=== PATIENT | female | born 1960 | race Caucasian/White ===

== ENCOUNTER 2024-07-31 14:51 | Outpatient (REF) | payer MEDICARE, OTHER, SELFPAY ==
--- NOTE | 2024-07-31 14:58 | EMG_ITS ---
Chief complaint: History of lumbar fusion 2020, right-sided back/leg pain at that time. Bilateral hand and feet numbness started about a year ago. Fall 12/2023, paralyzed for about 15 minutes, told to have cervical spinal stenosis. Reason for referral: Evaluate for radiculopathy versus neuropathy Referred by: Dr. Hirsch Procedure done: Bilateral upper and lower extremity NCS/EMG Precautions and/or limitations: None The limb temperature was monitored continuously and remained between 32-36 degrees C during the performance of the NCS. Nerve Conduction Studies Anti Sensory Summary Table ?Stim Site NR Onset (ms) Norm Onset (ms) Peak (ms) Norm Peak (ms) O-P Amp (?V) Norm O-P Amp Site1 Site2 Delta-0 (ms) Dist (cm) Edson (m/s) Norm Edson (m/s) Left Median Anti Sensory (2nd Digit) Wrist ? 3.5 4.4 <3.6 8.2 >10 Wrist 2nd Digit 3.5 14.0 40 Right Median Anti Sensory (2nd Digit) Wrist ? 3.1 3.8 <3.6 26.5 >10 Wrist 2nd Digit 3.1 14.0 45 Left Sural Anti Sensory (Lat Mall) Calf NR <4.0 >5.0 Calf Lat Mall 14.0 Right Sural Anti Sensory (Lat Mall) Calf NR <4.0 >5.0 Calf Lat Mall 14.0 Left Ulnar Anti Sensory (5th Digit) Wrist ? 2.8 3.3 <3.7 15.0 >15.0 Wrist 5th Digit 2.8 14.0 50 Right Ulnar Anti Sensory (5th Digit) Wrist ? 2.4 3.1 <3.7 22.2 >15.0 Wrist 5th Digit 2.4 14.0 58 Motor Summary Table ?Stim Site NR Onset (ms) Norm Onset (ms) O-P Amp (mV) Norm O-P Amp iAmp (mV) Amp (1st) (%) Site1 Site2 Delta-0 (ms) Dist (cm) Edson (m/s) Norm Edson (m/s) Left Median Motor (Abd Poll Brev) Wrist ? 5.0 <3.9 6.8 >4.5 7.4 100.0 Elbow Wrist 4.1 18.0 44 >45 Elbow ? 9.1 6.7 7.5 98.5 Right Median Motor (Abd Poll Brev) Wrist ? 4.3 <3.9 10.0 >4.5 12.1 100.0 Elbow Wrist 3.9 19.5 50 >45 Elbow ? 8.2 9.5 11.6 95.0 Right Peroneal Motor (Ext Dig Brev) Ankle ? 8.1 <4.0 1.1 >2.5 1.3 100.0 Ankle Ext Dig Brev 8.1 0.0 B Fib ? 16.8 0.4 0.4 36.4 B Fib Ankle 8.7 29.0 33 >40 Poplt ? 17.2 1.4 1.6 127.3 Poplt B Fib 0.4 7.0 175 >40 Left Tibial Motor (Abd Le Brev) Ankle ? 5.6 <5 3.8 >2.5 4.8 100.0 Ankle Abd Le Brev 5.6 0.0 Knee ? 18.6 0.5 0.5 13.2 Knee Ankle 13.0 37.0 28 >40 Right Tibial Motor (Abd Le Brev) Ankle ? 8.0 <5 4.1 >2.5 5.2 100.0 Ankle Abd Le Brev 8.0 0.0 Knee ? 18.9 0.4 0.8 9.8 Knee Ankle 10.9 35.0 32 >40 Left Ulnar Motor (Abd Dig Minimi) Wrist ? 3.0 <3.0 6.8 >5 8.1 100.0 B Elbow Wrist 3.1 17.5 56 >45 B Elbow ? 6.1 6.5 7.9 95.6 A Elbow B Elbow 1.8 10.0 56 >45 A Elbow ? 7.9 5.4 6.9 79.4 Right Ulnar Motor (Abd Dig Minimi) Wrist ? 2.7 <3.0 9.4 >5 11.0 100.0 B Elbow Wrist 3.3 18.5 56 >45 B Elbow ? 6.0 8.9 10.5 94.7 A Elbow B Elbow 1.4 10.0 71 >45 A Elbow ? 7.4 8.4 10.0 89.4 EMG ?Side Muscle Nerve Root Ins Act Fibs Psw Amp Dur Poly Recrt Int Pat Comment Right 1stDorInt Ulnar C8-T1 Nml Nml Nml Nml Nml 0 Nml Complete Right FlexCarRad Median C6-7 Nml Nml Nml Nml Nml 0 Nml Complete Right Biceps Musculocut C5-6 Nml Nml Nml Nml Nml 0 Nml Complete Right Triceps Radial C6-7-8 Nml Nml Nml Nml Nml 0 Nml Complete Right Deltoid Axillary C5-6 Nml Nml Nml Nml Nml 0 Nml Complete Left 1stDorInt Ulnar C8-T1 Nml Nml Nml Nml Nml 0 Nml Complete Left FlexCarRad Median C6-7 Nml Nml Nml Nml Nml 0 Nml Complete Left Biceps Musculocut C5-6 Nml Nml Nml Nml Nml 0 Nml Complete Left Triceps Radial C6-7-8 Nml Nml Nml Nml Nml 0 Nml Complete Left Deltoid Axillary C5-6 Nml Nml Nml Nml Nml 0 Nml Complete Right AbdHallucis MedPlantar S1-2 Nml Nml Nml Nml Nml 0 Nml Complete Right AntTibialis Dp Br Peron L4-5 Nml Nml Nml Nml Nml 0 Nml Complete Right PostTibialis Tibial L5, S1 Nml Nml Nml Nml Nml 0 Nml Complete Right MedGastroc Tibial S1-2 Nml Nml Nml Nml Nml 0 Nml Complete Right VastusMed Femoral L2-4 Nml Nml Nml Nml Nml 0 Nml Complete Left AbdHallucis MedPlantar S1-2 Nml Nml Nml Nml Nml 0 Nml Complete Left AntTibialis Dp Br Peron L4-5 Nml Nml Nml Nml Nml 0 Nml Complete Left PostTibialis Tibial L5, S1 Nml Nml Nml Nml Nml 0 Nml Complete Left MedGastroc Tibial S1-2 Nml Nml Nml Nml Nml 0 Nml Complete Left VastusMed Femoral L2-4 Nml Nml Nml Nml Nml 0 Nml Complete Paraspinal EMG ?Side Muscle Nerve Root Ins Act Fibs Psw Comment Right Cervical Upper Rami Nml Nml Nml Right Cervical Mid Rami Nml Nml Nml Right Cervical Lower Rami Nml Nml Nml Left Cervical Upper Rami Nml Nml Nml Left Cervical Mid Rami Nml Nml Nml Left Cervical Lower Rami Nml Nml Nml FINDINGS: Right median motor nerve showed prolonged distal latency, normal amplitude and normal conduction velocity. Left median motor nerve showed prolonged distal latency, normal amplitude and slow conduction velocity. Bilateral median sensory nerves showed prolonged peak latencies. Right peroneal nerve showed prolonged distal latency, small amplitude and slow conduction velocity distally. Bilateral tibial nerves showed prolonged distal latency, small amplitude proximally and slow conduction velocity. Bilateral sural nerves showed absent response. All other nerves tested were within normal. Concentric needle EMG was performed in selected muscles of the bilateral upper and lower extremities, cervical paraspinals. Study did not reveal signs of electric abnormalities as shown in the table above. IMPRESSION: 1. This is an abnormal study. 2. 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 3. There is electrodiagnostic evidence for bilateral moderate-severe median neuropathy at the wrist, consistent with Carpal Tunnel Syndrome. 4. There is no electrodiagnostic evidence for ulnar neuropathy, brachial plexopathy, cervical radiculopathy, lumbosacral plexopathy, or lumbar radiculopathy. Thank you for your kind referral. Valarie Szymanski MD, MURALI Board Certified, [place] [employer] (ABPMR) Board Certified, [place] [employer] (ABEM) CODIN 08694 x4 MTDD
--- OUTSIDE RECORDS SUMMARY | 2024-07-31 18:38 | XMS_ITS | Data Portability ---
Author Organization [facility], Main Office Address [address] [place] [address] Care Team Providers Care Director Of Maintenance Name Role Phone [facility] Ophthalmologis t ANY FISHER Primary Care Provider [phone] GREGORIO CHING Neurosurgeon MARTY GARCIA Neurologist Assessment Encounter Date Assessment Date Assessment LastModified by Organization Details LastModified Time 11/14/2023 11/14/2023 1. Lab Tests: Added ferritin and iron levels to rule out deficiencies potentially causing restless legs. 2. Referrals: Placed a sleep medicine referral and encouraged her to follow through. 3. Weight Management: Advised her to continue working with her operations trainer and monitor weight progress. Follow-up in 1 months to assess weight loss and consider medication if needed. 3. Myeloma Workup: If positive, refer to a admission liaison-onc ologist. Consider a bone scan and EMG for the noted neuropathy, +/- neurology, may consider gabapentin sometime for symptomatic relief. 4. Diet: Discussed the Mediterranean diet briefly and its benefits. 5. Follow up with neurosurgery regarding cervical finding on MRI 6. No signs of infection with leukocytosis, could be reactive. I will follow up in approximately 1 months to evaluate her weight loss progress and discuss her decision regarding potential neurosurgery for her neck. I have spent 45 minutes on this encounter. The time documented represents time spent on the day of the encounter preparing for and completing the visit. Time spent performing a physical exam, obtaining history from the patient, counseling/educa ting the patient in possible diagnosis and treatment options. This time is independent of any additional procedures/diagn ostic testing/interpre tations. [email or web address] Not available 11/14/2023 19:10:38 11/23/2023 11/23/2023 The patient is an adult over 18 years old with a BMI greater than 30 kg/m??. She has a medical history that includes hypertension, prediabetes, hyperlipidemia, and a family history of heart disease. A sleep evaluation is pending for potential obstructive sleep apnea (DANDY). She will be engaging in a structured program of behavioral modification, adhering to a Mediterranean-st yle low-calorie diet, and regular exercise approximately 3-4 times a week for the next 3 months with her operations trainer. If there is no significant change in her weight, we discussed potential medication augmentation, as weight loss will be challenging for her given her severe degenerative spine disease worsened by her recent fall. With the need for recent PO steroid due to transient quadriplegia. She has also had lower back surgery in the past. She will conduct weekly weight checks. Both NAOMI and PHQ assessments have been completed. A follow-up appointment is scheduled for three months from now, and we will review the weight loss contract at that time. This service was provided using telemedicine. Patient consented to video & audio visit Patient was located in the [facility]. Provider was located in the office. No other persons participated in the telemedicine visit except for the patient unless otherwise indicated here. {{}} Total time of visit was 15 minutes. [email or web address] Not available 11/23/2023 18:03:08 02/27/2024 02/27/2024 The patient is an adult over 18 years old with a BMI greater than 30 kg/m??. She has a medical history that includes hypertension, prediabetes, hyperlipidemia, and a family history of heart disease. A sleep evaluation is pending for potential obstructive sleep apnea (DANDY). She also has significant spinal stenosis with radiculopathy, which limits her ability to get the most out of physical activity despite her efforts including surgery, and her weight exacerbates her symptoms to the point that she ambulates with a walker and experiences significant discomfort at night. Despite engaging in a structured program of behavioral modification, adhering to a Mediterranean-st yle low-calorie diet, and trying to exercise regularly with the guidance of her operations trainer, there has been no significant change in her weight. After discussing medication options, we decided to initiate treatment with Zepbound, pending approval from her insurance. She will continue with lifestyle modifications, including dietary restrictions, and will strive for regular exercise despite her back issues while on this medication. The initial dosage will follow recommended guidelines, with plans to adjust the dose monthly as needed. She has agreed not to use any other weight loss medications or those with similar mechanisms of action concurrently. We discussed potential side effects of Zepbound, such as nausea and constipation. The patient has no history of thyroid cancer, gallbladder disease, or pancreatitis. Instructions were provided on proper injection techniques, including alternating injection sites, cleaning the area before injecting, and pinching the skin during injection. She is required to report her progress every two weeks via messaging, which will help guide any necessary adjustments to her prescription. A one-time prior authorization for Zepbound will be pursued, and we will not switch to a different GLP-1 receptor agonist or engage in [id number] appeals if the medication is denied. She is responsible for locating a pharmacy that stocks the medication and understands the titration process, which involves increasing doses sequentially. If the required dose is unavailable, we will maintain the current dose or adjust to a lower dose until the desired dose becomes available. I also reviewed the risk of bowel obstruction with her. She will conduct weekly weight checks. Both NAOMI and PHQ assessments have been completed. A follow-up appointment is scheduled for three months from now, and the weight loss contract has been completed and signed. I, the prescribing provider, am a board-certified family medicine physician with training in obesity management. This certification is awarded by the [employer], a member of the [employer]. Additionally, I have completed continuing medical education (CME) in obesity management, awarded by the [employer], which has equipped me with comprehensive knowledge and skills in this specialty area. I have spent 45 minutes on this encounter. The time documented represents the time spent on the day of the encounter preparing for and completing the visit, including performing a physical exam, obtaining the patient's history, and counseling/educa ting the patient on possible diagnoses and treatment options. This time does not include any additional procedures, diagnostic testing, or interpretations. [email or web address] Not available 02/27/2024 19:02:15 04/09/2024 04/09/2024 Her blood pressure is better controlled today with amlodipine 10 mg, and she is tolerating it well. We will continue with this medication for now. I anticipate that as she continues to lose weight, her blood pressure may improve further. Regarding her lumbar stenosis, I am ordering an EMG of the lower extremities to assess for nerve involvement. Additionally, I will order an EMG for the upper extremities to evaluate her cervical radiculopathy symptoms. As for her Zepbound treatment, she has just started the 5 mg dose, which she is tolerating well. I will send a prescription for the 7.5 mg dose, with the plan to increase it once she has completed four doses of the 5 mg formulation, as per the titration protocol. On examination of her hip, she appears to have gluteal tendinopathy, which is likely unrelated to her lower extremity symptoms. I will order an X-ray of her hip and pelvis to rule out structural abnormalities. If the imaging is normal and her neurosurgeon approves, she can proceed with physical therapy focused on strengthening her gluteal muscles. Her operations trainer has also noted muscle spasms in this area, which I confirmed during the exam. To address this, I prescribed Robaxin for symptomatic relief, with instructions to use it as needed. The potential for sedation was discussed. I will follow up with her in three months to reassess her weight, blood pressure, and hip symptoms. [email or web address] Not available 04/09/2024 18:46:37 07/09/2024 07/09/2024 Weight Management & Zepbound Use: -Continue Zepbound, but if the dose lapse exceeds two weeks, restart at 2.5 mg to reduce the risk of bowel obstruction and GI side effects. -Encourage continued exercise with her operations trainer and dietary modifications. Neurologic Symptoms: -Follow up with neurosurgery regarding tingling in her fingertips for potential intervention. -EMG scheduled for next month to assess for neuropathy or cervical involvement. Hip Pain: -Symptoms have improved, and physical therapy was never pursued. Monitor and reassess if pain worsens. Blood Pressure & General Health: -BP is well controlled today? continue monitoring. -Continue dietary improvements and portion control. Follow-Up: Reassess in a PE to review medication adherence, weight loss progress, and EMG results. Monitor for any worsening neurologic symptoms or medication-relat ed side effects. belem Not available 07/09/2024 17:04:47 Plan of Treatment Reminders Order Date Submit Date Provider Last Modified By Organization Details Last Modified Time Details Appointments PE EST 2024 03:30P M Any Fisher MD Not available Not available Not available Lab None record ed. Referral physic al therap ist referr al 2023 024 [email or web address] Not available 04/09/2024 15:49:14 Procedures None record ed. Surgeries None record ed. Imaging electr omyogr am + nerve conduc tion study - b/l upper and lower. 2023 024 [facility] (Imaging), [address] [place] [address], [id number], 06/30/2024 13:28:26 XR, hip + pelvis , unilat eral, 2 or 3 view 2023 024 [email or web address] Not available 04/30/2024 09:46:14 Medication Orders methoc arbamo l 500 mg tablet 2023 025 [facility], [address] [place] [address], [id number], 07/09/2024 14:33:59 Zepbou nd 7.5 mg/0.5 mL subcut aneous pen inject or 2023 024 belem [facility], [address] [place] [address], [id number], 07/09/2024 10:29:53 Zepbou nd 2.5 mg/0.5 mL subcut aneous pen inject or 2023 024 [facility], [address] [place] [address], [id number], 03/20/2024 20:58:38 Alcoho l Prep Pads 2023 024 [facility], [address] [place] [address], [id number], 02/27/2024 19:03:45 Patient TargetsNo targets recorded. Patient Instructions Encounter Date Encounter Id Patient Instructions Last Modified By Organization Details Last Modified Time 11/14/2023 [id number] learning about high white blood cell counts [email or web address] Not available 11/14/2023 19:10:43 restless legs syndrome: care instructions [email or web address] Not available 11/14/2023 19:10:43 lumbar spinal stenosis: care instructions [email or web address] Not available 11/14/2023 19:10:43 11/23/2023 [id number] When You Want to Lose Weight: Care Instructions [email or web address] Not available 11/23/2023 18:00:26 starting a weigh t loss plan: care instructions [email or web address] Not available 11/23/2023 18:00:26 Nutrition Referr al and Weight Management Follow-up Information [email or web address] Not available 11/23/2023 18:00:26 02/27/2024 [id number] high blood pressure: care instructions [email or web address] Not available 02/27/2024 19:03:25 learning about high blood pressure [email or web address] Not available 02/27/2024 19:03:25 resistance training with free weights: exercises [email or web address] Not available 02/27/2024 14:09:23 learning about t he mediterranean diet [email or web address] Not available 02/27/2024 14:09:23 starting a weigh t loss plan: care instructions [email or web address] Not available 03/10/2024 13:53:23 Reviewed long-te rm risks of obesity and inactivity. Assess present motivations for behavioral change. Advised patient regarding potential management strategies to deal with obesity, including referrals for dietary counseling. [email or web address] Not available 02/27/2024 13:35:07 04/09/2024 [id number] lumbar spinal stenosis: care instructions [email or web address] Not available 04/09/2024 15:39:10 high blood pressure: care instructions ckokar Not available 04/09/2024 15:39:11 learning about high blood pressure ckokar Not available 04/09/2024 15:39:10 07/09/2024 [id number] body mass index: care instructions ckokar Not available 07/09/2024 14:54:34 learning about healthy weight ckokar Not available 07/09/2024 14:54:34 When You Want to Lose Weight: Care Instructions [email or web address] Not available 07/09/2024 14:54:34 Reason for Referral Physical Therapist Referral for Tendinitis of right gluteal tendon Referring Physician: Any Fisher, Family Medicine, Encounter Date: 04/09/2024 Results Created Date Observation Date Name Description Value Unit Range Abnormal Flag Note LastModifiedBy Organization Detail LastModifiedTime 10/31/19 24 11/05/2023 IMMUN OFIXA TION, SERUM immunoglobul in g, qn, serum 1222 mg/dL 586-16 02 Not Available [facility] ([facility]) [address] [place], [address], 11/07/2023 18:06:00 10/31/19 24 11/05/2023 IMMUN OFIXA TION, SERUM immunoglobul in A, qn, serum 124 mg/dL 87-352 Not Available [facility] ([facility]) [address] [place], [address], 11/07/2023 18:06:00 10/31/19 24 11/05/2023 IMMUN OFIXA TION, SERUM immunoglobul in M, qn, serum 103 mg/dL 26-217 Not Available [facility] ([facility]) [address] [facility], [place], [address], 11/07/2023 18:06:00 10/31/19 24 11/07/2023 IMMUN OFIXA TION, SERUM immunofixati on result, serum Commen t abnormal Immun ofixa tion shows IgG monoc lonal prote in with lambd a light chain speci ficit y. Not Available [facility] ([facility]) [address] [place], [address], 11/07/2023 18:06:00 10/31/19 24 11/06/2023 FREE K+L LT CHAIN S,QN, S free kappa lt chains,S 11.4 mg/L 3.3-19 .4 Not Available [facility] ([facility]) [address] [place], [address], 11/07/2023 18:06:01 10/31/19 24 11/06/2023 FREE K+L LT CHAIN S,QN, S free lambda lt chains,S 14.8 mg/L 5.7-26 .3 Not Available [facility] ([facility]) [address] [facility], [place], [address], 11/07/2023 18:06:01 10/31/19 24 11/06/2023 FREE K+L LT CHAIN S,QN, S kappa/lambda ratio,S 0.77 0.26-1 .65 Not Available [facility] ([facility]) [address] [facility], [place], [address], 11/07/2023 18:06:01 10/31/19 24 11/03/2023 WRITT EN AUTHO RIZAT ION written authorizatio n Jeffrey t Aracely en Autho rizat ion Recei chanelle. Autho rizat ion recei chanelle from [facility] FISHER for Link Reque st on 11-02 Logge d by Edgar Thomas Not Available [facility] ([facility]) [address] [facility], [place], [address], 11/07/2023 18:06:01 10/31/19 24 10/31/2023 CBC WITH DIFFE RENTI AL/PL ATELE T WBC 11.6 x10e3 /uL 3.4-10 .8 above high normal Not Available [facility] ([facility]) [address] [place], [address], 11/09/2023 12:06:36 10/31/19 24 10/31/2023 CBC WITH DIFFE RENTI AL/PL ATELE T RBC 4.89 x10e6 /uL 3.77-5 .28 Not Available [facility] ([facility]) [address] [place], [address], 11/09/2023 12:06:36 10/31/19 24 10/31/2023 CBC WITH DIFFE RENTI AL/PL ATELE T hemoglobin 12.9 g/dL 11.1-1 5.9 Not Available [facility] ([facility]) [address] [place], [address], 11/09/2023 12:06:36 10/31/19 24 10/31/2023 CBC WITH DIFFE RENTI AL/PL ATELE T hematocrit 40.7 % 34.0-4 6.6 Not Available [facility] ([facility]) [address] [place], [address], 11/09/2023 12:06:36 10/31/19 24 10/31/2023 CBC WITH DIFFE RENTI AL/PL ATELE T MCV 83 fL 79-97 Not Available [facility] ([facility]) [address] [facility], [place], [address], 11/09/2023 12:06:36 10/31/19 24 10/31/2023 CBC WITH DIFFE RENTI AL/PL ATELE T MCH 26.4 pg 26.6-3 3.0 below low normal Not Available [facility] ([facility]) [address] [place], [address], 11/09/2023 12:06:36 10/31/19 24 10/31/2023 CBC WITH DIFFE RENTI AL/PL ATELE T MCHC 31.7 g/dL 31.5-3 5.7 Not Available [facility] ([facility]) [address] [place], [address], 11/09/2023 12:06:36 10/31/19 24 10/31/2023 CBC WITH DIFFE RENTI AL/PL ATELE T RDW 12.7 % 11.7-1 5.4 Not Available [facility] ([facility]) [address] [place], [address], 11/09/2023 12:06:36 10/31/19 24 10/31/2023 CBC WITH DIFFE RENTI AL/PL ATELE T platelets 341 x10e3 /uL 150-45 0 Not Available [facility] ([facility]) [address] [facility], [place], [address], 11/09/2023 12:06:36 10/31/19 24 10/31/2023 CBC WITH DIFFE RENTI AL/PL ATELE T neutrophils 67 % not estab. Not Available [facility] ([facility]) [address] [facility], [place], [address], 11/09/2023 12:06:36 10/31/19 24 10/31/2023 CBC WITH DIFFE RENTI AL/PL ATELE T lymphs 24 % not estab. Not Available [facility] ([facility]) [address] [facility], [place], [address], 11/09/2023 12:06:36 10/31/19 24 10/31/2023 CBC WITH DIFFE RENTI AL/PL ATELE T monocytes 6 % not estab. Not Available [facility] ([facility]) [address] [facility], [place], [address], 11/09/2023 12:06:36 10/31/19 24 10/31/2023 CBC WITH DIFFE RENTI AL/PL ATELE T eos 2 % not estab. Not Available [facility] ([facility]) [address] [facility], [place], [address], 11/09/2023 12:06:36 10/31/19 24 10/31/2023 CBC WITH DIFFE RENTI AL/PL ATELE T basos 1 % not estab. Not Available [facility] ([facility]) [address] [facility], [place], [address], 11/09/2023 12:06:36 10/31/19 24 10/31/2023 CBC WITH DIFFE RENTI AL/PL ATELE T immature cells [employer] Not Available [facility] ([facility]) [address] [facility], [place], [address], 11/09/2023 12:06:36 10/31/19 24 10/31/2023 CBC WITH DIFFE RENTI AL/PL ATELE T neutrophils (absolute) 7.8 x10e3 /uL 1.4-7. 0 above high normal Not Available [facility] ([facility]) [address] [facility], [place], [address], 11/09/2023 12:06:36 10/31/19 24 10/31/2023 CBC WITH DIFFE RENTI AL/PL ATELE T lymphs (absolute) 2.8 x10e3 /uL 0.7-3. 1 Not Available [facility] ([facility]) [address] [facility], [place], [address], 11/09/2023 12:06:36 10/31/19 24 10/31/2023 CBC WITH DIFFE RENTI AL/PL ATELE T monocytes(ab solute) 0.7 x10e3 /uL 0.1-0. 9 Not Available [facility] ([facility]) [address] [facility], [place], [address], 11/09/2023 12:06:36 10/31/19 24 10/31/2023 CBC WITH DIFFE RENTI AL/PL ATELE T eos (absolute) 0.2 x10e3 /uL 0.0-0. 4 Not Available [facility] ([facility]) [address] [facility], [place], [address], 11/09/2023 12:06:36 10/31/19 24 10/31/2023 CBC WITH DIFFE RENTI AL/PL ATELE T baso (absolute) 0.1 x10e3 /uL 0.0-0. 2 Not Available [facility] ([facility]) [address] [facility], [place], [address], 11/09/2023 12:06:36 10/31/19 24 10/31/2023 CBC WITH DIFFE RENTI AL/PL ATELE T immature granulocytes 0 % not estab. Not Available [facility] ([facility]) [address] [facility], [place], [address], 11/09/2023 12:06:36 10/31/19 24 10/31/2023 CBC WITH DIFFE RENTI AL/PL ATELE T immature grans (abs) 0.0 x10e3 /uL 0.0-0. 1 Not Available [facility] ([facility]) [address] [facility], [place], [address], 11/09/2023 12:06:36 10/31/19 24 10/31/2023 CBC WITH DIFFE RENTI AL/PL ATELE T NRBC [employer] Not Available [facility] ([facility]) [address] [facility], [place], [address], 11/09/2023 12:06:36 10/31/19 24 10/31/2023 CBC WITH DIFFE RENTI AL/PL ATELE T hematology comments: [employer]ELOPER Not Available [facility] ([facility]) [address] [facility], [place], [address], 11/09/2023 12:06:36 10/31/19 24 11/01/2023 COMP. METAB OLIC PANEL (14) glucose 99 mg/dL 70-99 Not Available [facility] ([facility]) [address] [facility], [place], [address], 11/09/2023 12:06:38 10/31/19 24 11/01/2023 COMP. METAB OLIC PANEL (14) BUN 15 mg/dL 8-27 Not Available [facility] ([facility]) [address] [facility], [place], [address], 11/09/2023 12:06:38 10/31/19 24 11/01/2023 COMP. METAB OLIC PANEL (14) creatinine 0.78 mg/dL 0.57-1 .00 Not Available [facility] ([facility]) [address] [facility], [place], [address], 11/09/2023 12:06:38 10/31/19 24 11/01/2023 COMP. METAB OLIC PANEL (14) eGFR 85 mL/mi n/1.7 3 >59 Not Available [facility] ([facility]) [address] [facility], [place], [address], 11/09/2023 12:06:38 10/31/19 24 11/01/2023 COMP. METAB OLIC PANEL (14) BUN/creatini ne ratio 19 12-28 Not Available [facility] ([facility]) [address] [facility], [place], [address], 11/09/2023 12:06:38 10/31/19 24 11/01/2023 COMP. METAB OLIC PANEL (14) sodium 138 mmol/ L 134-14 4 Not Available [facility] ([facility]) [address] [facility], [place], [address], 11/09/2023 12:06:38 10/31/19 24 11/01/2023 COMP. METAB OLIC PANEL (14) potassium 4.3 mmol/ L 3.5-5. 2 Not Available [facility] ([facility]) [address] [facility], [place], [address], 11/09/2023 12:06:38 10/31/19 24 11/01/2023 COMP. METAB OLIC PANEL (14) chloride 95 mmol/ L 96-106 below low normal Not Available [facility] ([facility]) [address] [facility], [place], [address], 11/09/2023 12:06:38 10/31/19 24 11/01/2023 COMP. METAB OLIC PANEL (14) carbon dioxide, total 25 mmol/ L 20-29 Not Available [facility] ([facility]) [address] [facility], [place], [address], 11/09/2023 12:06:38 10/31/19 24 11/01/2023 COMP. METAB OLIC PANEL (14) calcium 10.2 mg/dL 8.7-10 .3 Not Available [facility] ([facility]) [address] [place], [address], 11/09/2023 12:06:38 10/31/19 24 11/01/2023 COMP. METAB OLIC PANEL (14) protein, total 7.5 g/dL 6.0-8. 5 Not Available [facility] ([facility]) [address] [place], [address], 11/09/2023 12:06:38 10/31/19 24 11/01/2023 COMP. METAB OLIC PANEL (14) albumin 4.8 g/dL 3.9-4. 9 Not Available [facility] ([facility]) [address] [place], [address], 11/09/2023 12:06:38 10/31/19 24 11/01/2023 COMP. METAB OLIC PANEL (14) globulin, total 2.7 g/dL 1.5-4. 5 Not Available [facility] ([facility]) [address] [place], [address], 11/09/2023 12:06:38 10/31/19 24 11/01/2023 COMP. METAB OLIC PANEL (14) A/G ratio 1.8 Not Available [facility] ([facility]) [address] [place], [address], 11/09/2023 12:06:38 10/31/19 24 11/01/2023 COMP. METAB OLIC PANEL (14) bilirubin, total 0.3 mg/dL 0.0-1. 2 Not Available [facility] ([facility] [address] [place], [address], 11/09/2023 12:06:38 10/31/19 24 11/01/2023 COMP. METAB OLIC PANEL (14) alkaline phosphatase 55 IU/L 44-121 Not Available [facility] ([facility]) [address], [place], [address], 11/09/2023 12:06:38 10/31/19 24 11/01/2023 COMP. METAB OLIC PANEL (14) AST (SGOT) 23 IU/L 0-40 Not Available [facility] ([facility]) [address], [place], [address], 11/09/2023 12:06:38 10/31/19 24 11/01/2023 COMP. METAB OLIC PANEL (14) ALT (SGPT) 30 IU/L 0-32 Not Available [facility] ([facility]) [address], [place], [address], 11/09/2023 12:06:38 10/31/19 24 10/31/2023 PROTE IN ELECT RO.,S please note: Commen t Prote in elect ropho resis scan will follo w via compu ter, mail, or couri er tenisha tate. Not Available [facility] ([facility]) [address], [place], [address], 11/09/2023 12:06:38 10/31/19 24 11/01/2023 PROTE IN ELECT RO.,S albumin 4.0 g/dL 2.9-4. 4 Not Available [facility] ([facility]) [address], [place], [address], 11/09/2023 12:06:38 10/31/19 24 11/01/2023 PROTE IN ELECT RO.,S wbjlr-2-fsip ulin 0.3 g/dL 0.0-0. 4 Not Available [facility] ([facility]) [address], [place], [address], 11/09/2023 12:06:38 10/31/19 24 11/01/2023 PROTE IN ELECT RO.,S vpkba-5-wdkg ulin 1.0 g/dL 0.4-1. 0 Not Available [facility] ([facility]) [address] [place], [address], 11/09/2023 12:06:38 10/31/19 24 11/01/2023 PROTE IN ELECT RO.,S beta globulin 1.1 g/dL 0.7-1. 3 Not Available [facility] ([facility]) [address] [place], [address], 11/09/2023 12:06:38 10/31/19 24 11/01/2023 PROTE IN ELECT RO.,S gamma globulin 1.1 g/dL 0.4-1. 8 Not Available [facility] ([facility]) [address] [facility], [place], [address], 11/09/2023 12:06:38 10/31/19 24 11/01/2023 PROTE IN ELECT RO.,S M-spike 0.6 g/dL not observ ed above high normal The SPE patte rn alfonso strat es a singl e peak (M-sp cliff) in the gamma regio n which may repre sent monoc lonal prote in. This peak may also be cause d by circu latin g immun e compl exes, cryog lobul ins, C-peg ctive prote in, fibri nogen or hemol ysis. If clini dara indic ated, the prese nce of a monoc lonal gammo vickie may be confi rmed by immun o- fixat ion, as well as an evalu ation of the urine for the prese nce of Bence -Robbie s prote in. Not Available [facility] ([facility]) [address] [facility] [place], [address], 11/09/2023 12:06:38 10/31/19 24 11/01/2023 PROTE IN ELECT RO.,S globulin, total 3.5 g/dL 2.2-3. 9 Not Available [facility] ([facility]) [address] [facility] [place], [address], 11/09/2023 12:06:38 10/31/19 24 11/01/2023 PROTE IN ELECT RO.,S A/G ratio 1.1 0.7-1. 7 Not Available [facility] ([facility]) [address] [place], [address], 11/09/2023 12:06:38 10/31/19 24 11/01/2023 PROTE IN ELECT RO.,S pdf . Not Available [facility] ([facility]) [address] [place], [address], 11/09/2023 12:06:38 10/31/19 24 11/01/2023 PROTE IN ELECT RO, RANDO M URINE albumin, U TNP Test not perfo rmed Not Available [facility] ([facility]) [address] [place], [address], 11/09/2023 12:06:39 10/31/19 24 11/01/2023 PROTE IN ELECT RO, RANDO M URINE kdnoz-4-dmpv ulin, U TNP Test not perfo rmed Not Available [facility] ([facility]) [address] [place], [address], 11/09/2023 12:06:39 10/31/19 24 11/01/2023 PROTE IN ELECT RO, RANDO M URINE vvihw-3-culf ulin, U TNP Test not perfo rmed Not Available [facility] ([facility]) [address] [place], [address], 11/09/2023 12:06:39 10/31/19 24 11/01/2023 PROTE IN ELECT RO, RANDO M URINE beta globulin, U TNP Test not perfo rmed Not Available [facility] ([facility]) [address] [place], [address], 11/09/2023 12:06:39 10/31/19 24 11/01/2023 PROTE IN ELECT RO, RANDO M URINE gamma globulin, U TNP Test not perfo rmed Not Available [facility] ([facility]) [address] [place], [address], 11/09/2023 12:06:39 10/31/19 24 11/01/2023 PROTE IN SLICK ROLUCHOO M URINE M-spike, % JAVA WE[employer] DEVELOPER Not Available [facility] ([facility]) [address] [place], [address], 11/09/2023 12:06:39 10/31/19 24 11/01/2023 PROTE IN ELECT ROLUCHOO M URINE please note: JAVA WE[employer] DEVELOPER Not Available [facility] ([facility]) [address] [place], [address], 11/09/2023 12:06:39 10/31/19 24 11/01/2023 PROTE IN LUCHO HAMPTONO M URINE pdf JAVA WE[employer] DEVELOPER Not Available [facility] ([facility]) [address] [place], [address], 11/09/2023 12:06:39 10/31/19 24 11/09/2023 PROTE IN ANTOINE HAMPTON M URINE protein,tota l,urine TNP mg/dL Test not perfo rmed. No urine speci men recei chanelle. Not Available [facility] ([facility]) [address] [place], [address], 11/09/2023 12:06:39 10/31/19 24 11/01/2023 LIPID PANEL cholesterol, total 207 mg/dL 100-19 9 above high normal Not Available [facility] ([facility]) [address] [place], [address], 11/09/2023 12:06:41 10/31/19 24 11/01/2023 LIPID PANEL triglyceride s 139 mg/dL 0-149 Not Available [facility] ([facility]) [address] [place], [address], 11/09/2023 12:06:41 10/31/19 24 11/01/2023 LIPID PANEL HDL cholesterol 65 mg/dL >39 Not Available [facility] ([facility]) [address] [place], [address], 11/09/2023 12:06:41 10/31/19 24 11/01/2023 LIPID PANEL VLDL cholesterol jessica 24 mg/dL 5-40 Not Available [facility] ([facility]) [address] [place], [address], 11/09/2023 12:06:41 10/31/19 24 11/01/2023 LIPID PANEL LDL chol calc ([facility]) 118 mg/dL 0-99 above high normal Not Available [facility] ([facility]) [address] [place], [address], 11/09/2023 12:06:41 10/31/19 24 11/01/2023 LIPID PANEL LDL calc comment: JAVA WE[employer] DEVELOPER Not Available [facility] ([facility]) [address] [place], [address], 11/09/2023 12:06:41 10/31/19 24 11/03/2023 CARBA MAZEP INE(T OTAL+ FREE) carbamazepin e(tegretol), S 6.1 ug/mL 4.0-12 .0 In conju nctio n with other antie pilep tic drugs Thera peuti c 4.0 - 8.0 Toxic ity 9.0 - 12.0 Carba mazep ine alone Thera peuti c 8.0 - 12.0 Detec tion Limit = 0.5 <0.5 indic ated None Detec wallace Not Available [facility] ([facility]) [address] [place], [address], 11/09/2023 12:06:41 10/31/19 24 11/05/2023 CARBA MAZEP INE(T OTAL+ FREE) carbamazepin e, free, serum 1.0 ug/mL 0.6-4. 2 Detec tion Limit = 0.5 Not Available [facility] ([facility]) [address] [facility], [place], [address], 11/09/2023 12:06:41 10/31/19 24 11/01/2023 HEMOG LOBIN A1C hemoglobin A1C 5.9 % 4.8-5. 6 above high normal Predi abete s: 5.7 - 6.4 Diabe bon: >6.4 Glyce hussein contr ol for adult s with diabe bon: <7.0 Not Available [facility] ([facility]) [address] [place], [address], 11/09/2023 12:06:42 10/31/19 24 11/01/2023 RHEUM ATOID FACTO R (RF) rheumatoid factor (rf) <10.0 IU/mL <14.0 Not Available [facility] ([facility]) [address] [facility], [place], [address], 11/09/2023 12:06:43 10/31/19 24 11/08/2023 VITAM IN B1 (THIA MINE) , BLOOD vit. B1, whole blood 109.3 nmol/ L 66.5-2 00.0 Not Available [facility] ([facility]) [address] [place], [address], 11/09/2023 12:06:43 10/31/19 24 11/01/2023 LYME DISEA SE SEROL OGY W/REF LESTER lyme total antibody ernesto Negati ve negati ve Lyme antib odies not detec wallace. Refle x testi ng is not indic ated. No labor atory evide nce of infec tion with B. burgd orfer i (Lyme disea se). Negat liberty resul ts may occur in patie nts recen tly infec wallace (less than or equal to 14 days) with B. burgd orfer i. If recen t infec tion is suspe cted, repea t testi ng on a new sampl e colle cted in 7 to 14 days is rachell lyons Not Available [facility] ([facility]) [address] [place], [address], 11/09/2023 12:06:44 10/31/19 24 11/01/2023 TSH RFX ON ABNOR MAL TO FREE T4 TSH 2.680 uIU/m L 0.450- 4.500 Not Available [facility] ([facility]) [address] [place], [address], 11/09/2023 12:06:45 10/31/19 24 11/05/2023 METHY LMALO EMILY ACID, SERUM methylmaloni c acid, serum 196 nmol/ L 0-378 Not Available [facility] ([facility]) [address] [facility], [place], [address], 11/09/2023 12:06:45 10/31/19 24 11/01/2023 SEDIM ENTAT ION RATE- WESTE RGREN sedimentatio n rate-westerg roger 25 mm/HR 0-40 Not Available [facility] ([facility]) [address] [place], [address], 11/09/2023 12:06:46 10/31/19 24 11/09/[address] PROBL EM request problem TNP Test not perfo rmed. No urine speci men recei chanelle. TEST: 00137 [id number] Prote in Elect ro, Rando m Urine Not Available [facility] ([facility]) [address] [place], [address], 11/09/2023 12:06:46 10/31/19 24 11/01/2023 VITAM IN B12 vitamin B12 872 pg/mL 232-12 45 Not Available [facility] ([facility]) [address] [place], [address], 11/09/2023 12:06:47 10/31/19 24 11/01/2023 MAGNE SIUM magnesium 1.9 mg/dL 1.6-2. 3 Not Available [facility] ([facility]) [address] [facility], [place], [address], 11/09/2023 12:06:48 10/31/19 24 11/01/2023 C-PEG CTIVE PROTE IN, QUANT C-reactive protein, quant 7 mg/L 0-10 Not Available [facility] ([facility]) [address] [facility], [place], [address], 11/09/2023 12:06:48 10/31/19 24 11/01/2023 EKATERINA BY IFA RFX TITER /[place] A EKATERINA by ifa rfx titer/patter n Negati ve Negat liberty <1:80 Borde rline 1:80 Posit liberty >1:80 ICAP nomen clayadi re: AC-0 For more infor maximiliano n about Hep-2 cell patte rns use ANApa ttern s.org , the offic ial websi te for the Inter natio nal Conse nsus on Antin uclea r Antib joan (EKATERINA) Patte rns (ICAP ). Not Available [facility] ([facility]) [address] [facility], [place], [address], 11/09/2023 12:06:49 10/31/19 24 11/01/[address] PROBL EM request problem TNP Test not perfo rmed. No urine speci men recei chanelle. TEST: [id number] Prote in Elect ro, Rando m Urine Not Available [facility] ([facility]) [address] [facility], [place], [address], 11/09/2023 12:06:50 11/01/19 24 11/01/2023 PROTE IN ELECT RO, RANDO M URINE please note: Commen t Prote in elect ropho resis scan will follo w via compu ter, mail, or couri er tenisha bebeto. Not Available [facility] ([facility]) [address] [facility], [place], [address], 11/05/2023 18:05:56 11/01/19 24 11/02/2023 PROTE IN ELECT ANTOINE WOODARD M URINE protein,tota l,urine 13.4 mg/dL not estab. Not Available [facility] ([facility]) [address] [place], [address], 11/05/2023 18:05:56 11/01/19 24 11/05/2023 PROTE IN ELECT ROLUCHOO M URINE albumin, U 38.2 % Not Available [facility] ([facility]) [address] [place], [address], 11/05/2023 18:05:56 11/01/19 24 11/05/2023 PROTE IN LUCHO HAMPTONO M URINE qlvdq-0-udqo ulin, U 5.4 % Not Available [facility] ([facility]) [address] [place], [address], 11/05/2023 18:05:56 11/01/19 24 11/05/2023 PROTE IN ANTOINE HAMPTON M URINE tigkb-8-ttbn ulin, U 16.7 % Not Available [facility] ([facility]) [address] [place], [address], 11/05/2023 18:05:56 11/01/19 24 11/05/2023 PROTE IN ELECT ROLUCHOO M URINE beta globulin, U 19.4 % Not Available [facility] ([facility]) [address] [place], [address], 11/05/2023 18:05:56 11/01/19 24 11/05/2023 PROTE IN ELECT ROLUCHOO M URINE gamma globulin, U 20.3 % Not Available [facility] ([facility]) [address] [place], [address], 11/05/2023 18:05:56 11/01/19 24 11/05/2023 PROTE IN ELECT RO, RANDO M URINE M-spike, % Not Observ ed % not observ ed Not Available [facility] ([facility]) [address] [place], [address], 11/05/2023 18:05:56 11/01/19 24 11/05/2023 PROTE IN ELECT RO, RANDO M URINE pdf . Not Available [facility] ([facility]) [address] [place], [address], 11/05/2023 18:05:56 11/01/19 24 11/03/2023 KENNEDY AND PE, RANDO M URINE note: Commen t [facility]ollo w via compu ter, mail, or couri er tenisha tate. Not Available [facility] ([facility]) [address] [place], [address], 11/07/2023 20:06:27 11/01/19 24 11/05/2023 KENNEDY AND PE, RANDO M URINE albumin, U COMMEN T % Test not perfo rmed. We have recei chanelle your reque st for addit ional testi ng. We are not able to add the test( s) reque sted. Not Available [facility] ([facility]) [address] [place], [address], 11/07/2023 20:06:27 11/01/19 24 11/05/2023 KENNEDY AND PE, RANDO M URINE odtgg-7-xhnc ulin, U COMMEN T % Test not perfo rmed. We have recei chanelle your reque st for addit ional testi ng. We are not able to add the test( s) reque sted. Not Available [facility] ([facility]) [address] [place], [address], 11/07/2023 20:06:27 11/01/19 24 11/05/2023 KENNEDY AND PE, RANDO M URINE pmksf-4-ifyi ulin, U COMMEN T % Test not perfo rmed. We have recei chanelle your reque st for addit ional testi ng. We are not able to add the test( s) reque sted. Not Available [facility] ([facility]) [address] [place], [address], 11/07/2023 20:06:27 11/01/19 24 11/05/2023 KENNEDY AND PE, RANDO M URINE beta globulin, U COMMEN T % Test not perfo rmed. We have recei chanelle your reque st for addit ional testi ng. We are not able to add the test( s) reque sted. Not Available [facility] ([facility] [employer]) [address] [place], [address], 11/07/2023 20:06:27 11/01/19 24 11/05/2023 KENNEDY AND PE, RANDO M URINE gamma globulin, U COMMEN T % Test not perfo rmed. We have recei chanelle your reque st for addit ional testi ng. We are not able to add the test( s) reque sted. Not Available [facility] ([facility]) [address] [place], [address], 11/07/2023 20:06:27 11/01/19 24 11/05/2023 KENNEDY AND PE, RANDO M URINE M-spike, % COMMEN T % Test not perfo rmed. We have recei chanelle your reque st for addit ional testi ng. We are not able to add the test( s) reque sted. Not Available [facility] ([facility]) [address] [place], [address], 11/07/2023 20:06:27 11/01/19 24 11/05/2023 KENNEDY AND PE, RANDO M URINE immunofixati on result, urine COMMEN T Test not perfo rmed. We have recei chanelle your reque st for addit ional testi ng. We are not able to add the test( s) reque sted. Not Available [facility] ([facility]) [address] [place], [address], 11/07/2023 20:06:27 11/01/19 24 11/07/2023 KENNEDY AND PE, RANDO M URINE protein,tota l,urine 9.2 mg/dL not estab. Not Available [facility] ([facility]) [address] [facility], [place], [address], 11/07/2023 20:06:27 11/01/19 24 11/03/2023 WRITT EN AUTHO RIZAT ION written authorizatio n Commen t Writt en Autho rizat ion Recei chanelle. Autho rizat ion recei chanelle from [facility] for Link Reque st on 11-02 Logge d by Edgar Thomas Not Available [facility] ([facility]) [address] [facility], [place], [address], 11/07/2023 20:06:28 11/01/19 24 11/05/[address] PROBL EM request problem COMMEN T Test not perfo rmed. We have recei chanelle your reque st for addit ional testi ng. We are not able to add the test( s) reque sted. TEST: 87427 1 Album in, U Panel : 07774 0 03859 9 Alpha -1-Gl obuli n, U Panel : 26846 0 14318 7 Alpha -2-Gl obuli n, U Panel : 85862 0 52933 5 Beta Globu dc, U Panel : 36944 0 44111 3 Gamma Globu dc, U Panel : 34720 0 46263 4 M-Spi ke, % Panel : 51210 0 73038 2 Immun ofixa tion Resul t, Urine Panel : 82362 0 Not Available [facility] ([facility]) [address] [facility], [place], [address], 11/07/2023 20:06:28 11/14/19 24 11/16/2023 IRON AND TIBC iron bind.cap.(TI BC) 320 ug/dL 250-45 0 Not Available [facility] ([facility]) [address] [place], [address], 11/16/2023 20:06:22 11/14/19 24 11/16/2023 IRON AND TIBC UIBC 195 ug/dL 118-36 9 Not Available [facility] ([facility]) [address] [facility], [place], [address], 11/16/2023 20:06:22 11/14/19 24 11/16/2023 IRON AND TIBC iron 125 ug/dL 27-139 Not Available [facility] ([facility]) [address] [place], [address], 11/16/2023 20:06:22 11/14/19 24 11/16/2023 IRON AND TIBC iron saturation 39 % 15-55 Not Available [facility] ([facility]) [address] [place], [address], 11/16/2023 20:06:22 11/14/19 24 11/16/2023 OLIVIER TIN ferritin 96 NG/mL 15-150 Not Available [facility] ([facility]) [address] [place], [address], 11/16/2023 20:06:23 11/14/19 24 11/19/2023 ARACELY EN AUTHO RIZAT ION written authorizatio n Commen t Aracely en Autho rizat ion Recei chanelle. Autho rizat ion recei chanelle from [facility] for Link Reque st on 11-18 Logge d by Evin Jackson Not Available [facility] ([facility]) [address] [place], [address], 11/21/2023 18:06:00 11/14/19 24 11/15/2023 ARACELY EN AUTHO RIZAT ION written authorizatio n Commen t Aracely en Autho rizat ion Recei chanelle. Autho rizat ion recei chanelle from [facility] for Link Reque st on 11-14 Logge d by Edgar Thomas Not Available [facility] ([facility]) [address] [facility], [place], [address], 11/16/2023 20:06:23 11/14/19 24 11/14/2023 HEMAT OPATH CONSU LTATI ON, SMEAR WBC 10.6 x10e3 /uL 3.4-10 .8 Not Available [facility] ([facility]) [address] [place], [address], 11/20/2023 06:08:06 11/14/19 24 11/14/2023 HEMAT OPATH CONSU LTATI ON, SMEAR RBC 4.90 x10e6 /uL 3.77-5 .28 Not Available [facility] ([facility]) [address] [place], [address], 11/20/2023 06:08:06 11/14/19 24 11/14/2023 HEMAT OPATH CONSU LTATI ON, SMEAR hemoglobin 12.8 g/dL 11.1-1 5.9 Not Available [facility] ([facility]) [address] [place], [address], 11/20/2023 06:08:06 11/14/19 24 11/14/2023 HEMAT OPATH CONSU LTATI ON, SMEAR hematocrit 40.3 % 34.0-4 6.6 Not Available [facility] ([facility]) [address] [place], [address], 11/20/2023 06:08:06 11/14/19 24 11/14/2023 HEMAT OPATH CONSU LTATI ON, SMEAR MCV 82 fL 79-97 Not Available [facility] ([facility]) [address] [place], [address], 11/20/2023 06:08:06 11/14/19 24 11/14/2023 HEMAT OPATH CONSU LTATI ON, SMEAR MCH 26.1 pg 26.6-3 3.0 below low normal Not Available [facility] ([facility]) [address] [facility], [place], [address], 11/20/2023 06:08:06 11/14/19 24 11/14/2023 HEMAT OPATH CONSU LTATI ON, SMEAR MCHC 31.8 g/dL 31.5-3 5.7 Not Available [facility] ([facility]) [address] [facility], [place], [address], 11/20/2023 06:08:06 11/14/19 24 11/14/2023 HEMAT OPATH CONSU LTATI ON, SMEAR RDW 12.8 % 11.7-1 5.4 Not Available [facility] ([facility]) [address] [facility], [place], [address], 11/20/2023 06:08:06 11/14/19 24 11/14/2023 HEMAT OPATH CONSU LTATI ON, SMEAR platelets 331 x10e3 /uL 150-45 0 Not Available [facility] ([facility]) [address] [facility], [place], [address], 11/20/2023 06:08:06 11/14/19 24 11/14/2023 HEMAT OPATH CONSU LTATI ON, SMEAR neutrophils 66 % not estab. Not Available [facility] ([facility]) [address] [facility], [place], [address], 11/20/2023 06:08:06 11/14/19 24 11/14/2023 HEMAT OPATH CONSU LTATI ON, SMEAR lymphs 23 % not estab. Not Available [facility] ([facility]) [address] [place], [address], 11/20/2023 06:08:06 11/14/19 24 11/14/2023 HEMAT OPATH CONSU LTATI ON, SMEAR monocytes 7 % not estab. Not Available [facility] ([facility]) [address] [place], [address], 11/20/2023 06:08:06 11/14/19 24 11/14/2023 HEMAT OPATH CONSU LTATI ON, SMEAR eos 2 % not estab. Not Available [facility] ([facility]) [address] [place], [address], 11/20/2023 06:08:06 11/14/19 24 11/14/2023 HEMAT OPATH CONSU LTATI ON, SMEAR basos 1 % not estab. Not Available [facility] ([facility]) [address] [facility], [place], [address], 11/20/2023 06:08:06 11/14/19 24 11/14/2023 HEMAT OPATH CONSU LTATI ON, SMEAR immature cells [employer]ELOPER Not Available [facility] ([facility]) [address] [place], [address], 11/20/2023 06:08:06 11/14/19 24 11/14/2023 HEMAT OPATH CONSU LTATI ON, SMEAR neutrophils (absolute) 7.1 x10e3 /uL 1.4-7. 0 above high normal Not Available [facility] ([facility]) [address] [place], [address], 11/20/2023 06:08:06 11/14/19 24 11/14/2023 HEMAT OPATH CONSU LTATI ON, SMEAR lymphs (absolute) 2.4 x10e3 /uL 0.7-3. 1 Not Available [facility] ([facility]) [address] [place], [address], 11/20/2023 06:08:06 11/14/19 24 11/14/2023 HEMAT OPATH CONSU LTATI ON, SMEAR monocytes(ab solute) 0.7 x10e3 /uL 0.1-0. 9 Not Available [facility] ([facility]) [address] [facility], [place], [address], 11/20/2023 06:08:06 11/14/19 24 11/14/2023 HEMAT OPATH CONSU LTATI ON, SMEAR eos (absolute) 0.2 x10e3 /uL 0.0-0. 4 Not Available [facility] ([facility]) [address] [facility], [place], [address], 11/20/2023 06:08:06 11/14/19 24 11/14/2023 HEMAT OPATH CONSU LTATI ON, SMEAR baso (absolute) 0.1 x10e3 /uL 0.0-0. 2 Not Available [facility] ([facility]) [address] [facility], [place], [address], 11/20/2023 06:08:06 11/14/19 24 11/14/2023 HEMAT OPATH CONSU LTATI ON, SMEAR immature granulocytes 1 % not estab. Not Available [facility] ([facility]) [address] [facility], [place], [address], 11/20/2023 06:08:06 11/14/19 24 11/14/2023 HEMAT OPATH CONSU LTATI ON, SMEAR immature grans (abs) 0.1 x10e3 /uL 0.0-0. 1 Not Available [facility] ([facility]) [address] [facility], [place], [address], 11/20/2023 06:08:06 11/14/19 24 11/14/2023 HEMAT OPATH CONSU LTATI ON, SMEAR NRBC [employer]EL[employer] Not Available [facility] ([facility]) [address] [facility], [place], [address], 11/20/2023 06:08:06 11/14/19 24 11/14/2023 HEMAT OPATH CONSU LTATI ON, SMEAR hematology comments: [employer] DEVEL[employer] Eff ectiv e December 17, 2023 alisa marley [id number] Hemat opath Consu ltati on, Smear will be made non-o rdera ble. The lab will add a Patho logis t Revie w to abnor mal CBCs that requi re a Patho logis t Revie w based on the busin ess rules . Not Available [facility] ([facility]) [address] [facility], [place], [address], 11/20/2023 06:08:06 11/14/19 24 11/20/2023 HEMAT OPATH CONSU LTATI ON, SMEAR WBC Neutro philia . Poor WBC prese rvati on Not Available [facility] ([facility]) [address] [facility], [place], [address], 11/20/2023 06:08:06 11/14/1911/20/2023 HEMAT OPATH CONSU LTATI ON, SMEAR RBC RBC's appear normal . Mild hypoc hromi a by indic es Not Available [facility] ([facility]) [address] [facility], [place], [address], 11/20/2023 06:08:06 11/14/19 24 11/20/2023 HEMAT OPATH CONSU LTATI ON, SMEAR plts [place] te Not Available [facility] ([facility]) [address] [facility], [place], [address], 11/20/2023 06:08:06 11/14/1911/20/2023 HEMAT OPATH CONSU LTATI ON, SMEAR comments/rec ommendations Commen t Corre latio n and Clini dara appro priat e follo w up cynthia koch. Not Available [facility] ([facility]) [address] [facility], [place], [address], 11/20/2023 06:08:06 11/14/19 24 11/20/2023 HEMAT OPATH CONSU LTATI ON, SMEAR pathologist Commen t Revie wed by: Nicanor lopez MD, Patho logis t Not Available [facility] ([facility]) [address] [facility] [facility], [place], [address], 11/20/2023 06:08:06 11/14/19 24 11/14/2023 MULTI PLE MYELO MA CASCA DE protein, total 7.3 g/dL 6.0-8. 5 Not Available [facility] ([facility]) [address] [facility] [facility], [place], [address], 11/20/2023 06:08:07 11/14/19 24 11/14/2023 MULTI PLE MYELO MA CASCA DE please note: [facility]men t [facility] w via compu ter, mail, or couri randa tate. Not Available [facility] ([facility]) [address] [facility] [facility], [place], [address], 11/20/2023 06:08:07 11/14/19 24 11/15/2023 MULTI PLE MYELO MA CASCA DE albumin 3.9 g/dL 2.9-4. 4 Not Available [facility] ([facility]) [address] [facility] [facility], [place], [address], 11/20/2023 06:08:07 11/14/19 24 11/15/2023 MULTI PLE MYELO MA CASCA DE pzwzm-6-ktuj ulin 0.2 g/dL 0.0-0. 4 Not Available [facility] ([facility]) [address] [facility], [place], [address], 11/20/2023 06:08:07 11/14/19 24 11/15/2023 MULTI PLE MYELO MA CASCA DE qjptc-3-rvam ulin 1.0 g/dL 0.4-1. 0 Not Available [facility] ([facility]) [address] [facility] [facility], [place], [address], 11/20/2023 06:08:07 11/14/19 24 11/15/2023 MULTI PLE MYELO MA CASCA DE beta globulin 1.0 g/dL 0.7-1. 3 Not Available [facility] ([facility]) [address] [facility], [place], [address], 11/20/2023 06:08:07 11/14/19 24 11/15/2023 MULTI PLE MYELO MA CASCA DE gamma globulin 1.1 g/dL 0.4-1. 8 Not Available [facility] ([facility]) [address] [facility], [place], [address], 11/20/2023 06:08:07 11/14/19 24 11/15/2023 MULTI PLE MYELO MA CASCA DE M-spike 0.5 g/dL not observ ed above high normal The SPE patte rn cherylon strat es a singl e peak (M-sp cliff) in the gamma regio n which may repre sent monoc lonal prote in. This peak may also be cause d by circu latin g immun e compl exes, cryog lobul ins, C-peg ctive prote in, fibri nogen or hemol ysis. If clini dara indic ated, the prese nce of a monoc lonal gammo vickie may be confi rmed by immun o- fixat ion, as well as an evalu ation of the urine for the prese nce of Bence -Robbie s prote in. Not Available [facility] ([facility]) [address] [facility], [place], [address], 11/20/2023 06:08:07 11/14/19 24 11/15/2023 MULTI PLE MYELO MA CASCA DE globulin, total 3.4 g/dL 2.2-3. 9 Not Available [facility] ([facility]) [address] [facility], [place], [address], 11/20/2023 06:08:07 11/14/19 24 11/15/2023 MULTI PLE MYELO MA CASCA DE A/G ratio 1.1 0.7-1. 7 Not Available [facility] ([facility]) [address] [facility], [place], [address], 11/20/2023 06:08:07 11/14/19 24 11/15/2023 MULTI PLE MYELO MA CASCA DE reflex testing . Not Available [facility] ([facility]) [address] [facility], [place], [address], 11/20/2023 06:08:07 11/14/19 24 11/15/2023 MULTI PLE MYELO MA CASCA DE pdf . Not Available [facility] ([facility]) [address] [facility], [place], [address], 11/20/2023 06:08:07 11/14/19 24 11/16/2023 MULTI PLE MYELO MA CASCA DE immunoglobul in g, qn, serum 1139 mg/dL 586-16 02 Not Available [facility] ([facility]) [address] [facility], [place], [address], 11/20/2023 06:08:07 11/14/19 24 11/16/2023 MULTI PLE MYELO MA CASCA DE immunoglobul in A, qn, serum 109 mg/dL 87-352 Not Available [facility] ([facility]) [address] [facility], [place], [address], 11/20/2023 06:08:07 11/14/19 24 11/16/2023 MULTI PLE MYELO MA CASCA DE immunoglobul in M, qn, serum 92 mg/dL 26-217 Not Available [facility] ([facility]) [address] [facility], [place], [address], 11/20/2023 06:08:07 11/14/19 24 11/16/2023 MULTI PLE MYELO MA CASCA DE immunofixati on result, serum Commen t abnormal Immun ofixa tion shows IgG monoc lonal prote in with lambd a light chain speci ficit y. Not Available [facility] ([facility]) [address] [facility], [place], [address], 11/20/2023 06:08:07 11/14/19 24 11/14/2023 KENNEDY AND PE, RANDO M URINE note: Commboni t Fareed in formerly [facility] scan will follo w via compu ter, mail, or couri randa tate. Not Available [facility] ([facility]) [address] [place], [address], 11/20/2023 06:08:07 11/14/19 24 11/15/2023 KENNEDY AND PE, RANDO M URINE protein,tota l,urine 40.6 mg/dL not estab. Not Available [facility] ([facility]) [address] [place], [address], 11/20/2023 06:08:07 11/14/19 24 11/16/2023 KENNEDY AND PE, RANDO M URINE albumin, U 38.3 % Not Available [facility] ([facility]) [address] [place], [address], 11/20/2023 06:08:07 11/14/19 24 11/16/2023 KENNEDY AND PE, RANDO M URINE rsquq-5-ygsp ulin, U 5.0 % Not Available [facility] ([facility]) [address] [place], [address], 11/20/2023 06:08:07 11/14/19 24 11/16/2023 KENNEDY AND PE, RANDO M URINE cxayc-0-pphx ulin, U 20.8 % Not Available [facility] ([facility]) [address] [place], [address], 11/20/2023 06:08:07 11/14/19 24 11/16/2023 KENNEDY AND PE, RANDO M URINE beta globulin, U 24.9 % Not Available [facility] ([facility]) [address] [place], [address], 11/20/2023 06:08:07 11/14/19 24 11/16/2023 KENNEDY AND PE, RANDO M URINE gamma globulin, U 11.0 % Not Available [facility] ([facility]) [address] [facility], [place], [address], 11/20/2023 06:08:07 11/14/19 24 11/16/2023 KENNEDY AND PE, RANDO M URINE M-spike, % Not Observ ed % not observ ed Not Available [facility] ([facility]) [address] [facility], [place], [address], 11/20/2023 06:08:07 11/14/19 24 11/16/2023 KENNEDY AND PE, RANDO M URINE immunofixati on result, urine Commen t The immun ofixa tion teresita rn appea rs unrem arkab le. Evide nce of monoc lonal prote in is not appar ent. Not Available [facility] ([facility]) [address] [facility], [place], [address], 11/20/2023 06:08:07 11/14/19 24 11/16/2023 KENNEDY AND PE, RANDO M URINE pdf . Not Available [facility] ([facility]) [address] [facility], [place], [address], 11/20/2023 06:08:07 11/14/19 24 11/15/2023 T PALLI DUM SCREE ANGEL CASCA DE T pallidum antibodies Non Reacti ve non reacti ve Not Available [facility] ([facility]) [address] [place], [address], 11/20/2023 06:08:08 11/14/19 24 11/15/2023 HIV AB/P2 4 AG WITH REFLE X HIV Ab/P24 Ag screen Non Reacti ve non reacti ve HIV Negat liberty HIV-1 /HIV- 2 antib odies and HIV-1 p24 antig en were NOT detec wallace. There is no labor atory evide nce of HIV infec tion. Not Available [facility] ([facility]) [address] [facility], [place], [address], 11/20/2023 06:08:09 11/14/19 24 11/16/2023 BETA- 2 MICRO GLOBU DC, URINE beta-2 microglobuli n, urine 299 ug/L 0-300 Not Available [facility] ([facility]) [address] [facility], [place], [address], 11/20/2023 06:08:09 11/14/19 24 11/16/2023 BETA- 2 MICRO GLOBU DC, SERUM beta-2 microglobuli n, serum 1.9 mg/L 0.6-2. 4 Sieme ns Immul ite 2000 Immun ochem ilumi nomet angi assay (ICMA ) Value s obtai clay with diffe rent assay metho ds or kits canno t be used inter acharya leesa . Resul ts canno t be inter prete d as absol [place] evide nce of the prese nce or absen ce of [facility]. Not Available [facility] ([facility]) [address] [facility], [place], [address], 11/20/2023 06:08:10 11/14/19 24 11/16/2023 FREE KAPPA LT CHAIN S,UR free kappa lt chains,ur 47.80 mg/L 1.17-8 6.46 Not Available [facility] ([facility]) [address] [facility], [place], [address], 11/20/2023 06:08:10 11/14/19 24 11/21/2023 LDH LDH 184 IU/L 119-22 6 Not Available [facility] ([facility]) [address] [facility], [place], [address], 11/21/2023 18:05:58 11/14/19 24 11/19/2023 RETIC ULOCY TE COUNT reticulocyte count COMMEN T % Test not perfo rmed due to the age of this speci men. Not Available [facility] ([facility]) [address] [facility], [place], [address], 11/21/2023 18:05:59 11/14/19 24 11/21/2023 HAPTO GLOBI N haptoglobin 224 mg/dL 37-355 Not Available [facility] ([facility]) [address] [facility], [place], [address], 11/21/2023 18:05:59 11/14/19 24 11/19/[address] PROBL EM request problem COMMEN T Test not perfo rmed due to the age of this speci men. TEST: [id number] Retic ulocy te Count Not Available [facility] ([facility]) [address] [facility], [place], [address], 11/21/2023 18:06:00 12/24/19 24 12/24/2023 PET-C T, whole body scan No observ ation record ed. [facility] [address] [facility], [place], [address], 12/24/2023 17:29:49 06/16/19 25 06/16/2024 XR, hip + pelvi s, unila teral , 2 or 3 view XR Hip w/Pelv is 2-3 View Right Reason : pain in right hip COMPAR ANNA: PET/CT 12/24/19 FINDIN GS: There is no fractu re or disloc ation. Normal right hip joint. Symmet rical indole nt ossifi cation at the hamstr ing attach ment on the greate r tubero sity. IMPRES ARMANDO: Normal right hip. WSN: [id number] Orderi ng Physic lanie: Kathy Fisher Dictat ed By: Mariam Bernal MD Dictat ed Date/T alondra: 12:03 p Review ed By: Gricelda chang MD, Mariam jameson Signed By: Gricelda chang MD, Mariam jameson Signed Date/T alondra: 12:03 pm Transc ribed By: CSB Transc ribed Date/T alondra: 12:01 pm Patien t Class: Outpat ient [facility] (Outpt Imaging) [address], [place], [address], 06/16/2024 16:10:35 06/16/19 25 06/16/2024 XR, hip + pelvi s, unila teral , 2 or 3 view No observ ation record ed. [email or web address] Not Available 06/16 12:34:38 08/01/19 25 07/31/2024 elect romyo gram + nerve condu ction study No observ ation record ed. [facility] (Medical Records) [address] [place], [address], 07/31/2024 16:10:17 08/01/19 25 07/31/2024 elect romyo gram + nerve condu ction study No observ ation record ed. [facility] [address] [place], [address], 07/31/2024 16:17:09 08/01/19 25 07/31/2024 elect romyo gram + nerve condu ction study No observ ation record ed. [facility] [address] [place], [address], 07/31/2024 16:18:35 Result Notes None recorded. Problems Name Problem SNOMED Code Status Onset Date Resolution Date Notes Provider Name and Address Organization Details Recorded Time Essential hypertens ion 14196015 Active 2014 Alexandre Acosta MD [address], [place], [address], [facility] 7 09:43:16 Cerebral meningiom a 216168690 Active 2002 Alexandre Acosta MD [address], [place], [address], [facility] 9 09:31:22 Body mass index 30+ - obesity 548291881 Completed 201611/22/2018 Gertrude Marion MA null, [facility] 9 08:57:01 Gastroeso phageal reflux disease 321779856 Active 2016 Alexandre Acosta MD [address], [place], [address], [facility] 7 10:31:35 Vitamin D deficienc y 00597876 Completed 201608/16/2021 Any Fisher MD [address], [place], [address], [facility] 2 08:17:24 Seizure disorder 872442184 Active 2016 Alexandre Acosta MD [address], [place], [address], [facility] 7 10:31:39 Prediabet es 977553509 Active 2018 Alexandre Acosta MD [address], [place], [address], [facility] 9 21:39:43 Lesion of skin of face 257027600580 Completed 201810/10/2023 Any Fisher MD [address], [place], [address], [facility] 4 15:16:55 Spinal stenosis of lumbar region 63871558 Active 2020 Alexandre Acosta MD [address], [place], [address], [facility] 1 16:09:07 COVID-19 005936073 Completed 10/10/2023 Donna moise MA null, [facility] 4 14:44:58 Neuropath y 450789354 Active Natasha Rodriguez MA null, [facility] 4 11:10:20 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 Procedures Surgical History Date Name Laterality Status Provider Name and Address Organization Details Recorded Time 02/19/20 21 laminectomy completed Donna parks MA [facility] 07/07/2022 14:55:59 02/19/20 21 primary decompression of lumbar spine completed Donna parks MA [facility] 07/07/2022 14:55:14 10/03/19 19 Most Recent Mammogram completed Beatrice Edwards [facility] 11/22/2018 10:38:37 10/03/19 19 Mammogram screening completed Beatrice Edwards [facility] 11/22/2018 10:38:27 11/23/19 17 Date of Last Pap Smear completed Donna parks MA [facility] 09/10/2017 09:54:35 06/06/19 03 Neurosurgery completed Donna parks MA [facility] 11/29/2020 15:00:00 Colonoscopy completed Donna parks MA [facility] 11/29/2020 15:00:19 Imaging Results Imaging Date Name Status LastModified by Organization Details LastModified Time 12/24/2023 PET-CT, whole body scan completed [facility] [address] , [place], [address], 12/24/2023 17:29:49 06/16/2024 XR, hip + pelvis, unilateral, 2 or 3 view completed [facility] (Outpt Imaging) [address], [place], [address], 06/16/2024 16:10:35 06/16/2024 XR, hip + pelvis, unilateral, 2 or 3 view completed [email or web address] Information not available 06/16/2024 12:34:38 07/31/2024 electromyogram + nerve conduction study active [facility] (Medical Records) [address] [place], [address], 07/31/2024 16:10:17 07/31/2024 electromyogram + nerve conduction study active [facility] [address] [place], [address], 07/31/2024 16:17:09 07/31/2024 electromyogram + nerve conduction study active [facility] [address] [place], [address], 07/31/2024 16:18:35 Procedure Notes None recorded. Medical Equipment None Reported. Allergies No known drug allergies Medications Name Sig Start Date Stop Date Status Note LastModified by Organization Details LastModified Time carisoprodo l 350 mg tablet TAKE 1 TABLET BY MOUTH 3 TIMES A DAY FOR 7 DAYS 07/07 completed Not Available Not Available Not Available cyclobenzap rine 10 mg tablet Take 1 tablet 3 times a day by oral route for 10 days. 11/29 completed Not Available Not Available Not Available methocarbam ol 500 mg tablet Take 1 tablet every 8 hours by oral route as needed for 5 days. 07/09 completed Not Available Not Available Not Available prednisone 10 mg tablet TAKE 5 TABLETS BY MOUTH DAILY FOR 2 DAYS, 4 TABLETS DAILY FOR 2 DAYS, 3 TABLETS DAILY FOR 2 DAYS, 2 TABLETS DAILY FOR 2 DAYS, 1 TABLET DAILY FOR 2 DAYS 11/29 completed Not Available Not Available Not Available doxycycline hyclate 100 mg capsule 05/27 completed Not Available Not Available Not Available lisinopril 20 mg-hydrochl orothiazide 12.5 mg tablet Take 1 tablet every day by oral route for 90 days. active Not Available Not Available No t Available meloxicam 15 mg tablet Take 1 tablet every day by oral route with meals for 15 days. 11/15 completed Not Available Not Available Not Available amlodipine 2.5 mg tablet TAKE 1 TABLET BY MOUTH EVERY DAY 07/07 completed Not Available Not Available Not Available cimetidine 800 mg tablet Take 1 tablet every day by oral route for 90 days. 09/10 completed Not Available Not Available Not Available amlodipine 5 mg tablet TAKE 1 TABLET BY MOUTH EVERY DAY 10/09 completed Not Available Not Available Not Available methocarbam ol 750 mg tablet Take 1 tablet po daily 05/05 completed Not Available Not Available Not Available amlodipine 10 mg tablet Take 1 tablet every day by oral route for 90 days, for hypertens ion. active Not Available Not Available No t Available Advil 200 mg tablet Take 1 tablet every 6 hours by oral route as needed. active Not Available Not Available No t Available diclofenac sodium 75 mg tablet,trina yed release Take 1 tablet twice a day by oral route for 15 days. 11/03 completed Not Available Not Available Not Available methylpredn isolone 4 mg tablets in a dose pack TAKE 6 TABLETS ON DAY 1 DIRECTED ON PACKAGE AND DECREASE BY 1 TAB EACH DAY FOR A TOTAL OF 6 DAYS 10/09 completed Not Available Not Available Not Available oxycodone 5 mg tablet TAKE 1-2 TABLET BY MOUTH EVERY 4 HOURS, NEEDED FOR :PAIN , MILD 08/16 completed Not Available Not Available Not Available Pepcid AC 20 mg tablet Take 1 tablet every day by oral route. active OTC Not Available Not Available No t Available Alcohol Prep Pads Apply 1 pad every week by topical route for 90 days. 2023 active Not Available Not Available Not Avai lable carbamazepi ne ER 300 mg capsule,ext ended release [id number] TAKE 1 CAPSULE BY MOUTH EVERY MORNING [id number] active Not Available Not Available No t Available Evelyn 02/26 completed Not Available Not Available Not Available vitamin E 10/09 completed Not Available Not Available Not Available Motrin 02/26 completed Not Available Not Available Not Available One-A-Day Women's 50 Plus 400 mcg-20 mcg tablet Take 1 tablet every other day by oral route. 07/07 completed Not Available Not Available Not Available turmeric 02/26 completed Not Available Not Available Not Available methocarbam ol 1,000 mg tablet Take 1 tablet 3 times a day by oral route for 30 days. 2022 active Not Available Not Available Not Avai lable Zepbound 10 mg/0.5 mL subcutaneou s pen injector active Not Available Not Available Not Available Zepbound 5 mg/0.5 mL subcutaneou s pen injector Inject 5 mg every week by subcutane ous route for 30 days. 05/27 completed Not Available Not Available Not Available Zepbound 2.5 mg/0.5 mL subcutaneou s pen injector Inject 2.5 mg every week by subcutane ous route for 30 days. 03/20 completed Not Available Not Available Not Available Zepbound 7.5 mg/0.5 mL subcutaneou s pen injector Inject 7.5 mg every week by subcutane ous route for 30 days. 07/09 completed Not Available Not Available Not Available Vitals Date Recorded Body height Oxygen saturation Oxygen saturation in Arterial blood by Pulse oximetry Heart rate Body temperature Systolic blood pressure Diastolic blood pressure Provider Name and Address Organization Details Last Updated DateTime 4 163.83 cm 97 % 97 % 94 /min 97.3 [degF] 118 mm[Hg] 73 mm[Hg] [facility] 4 11:16:24 Date Recorded Body height Body mass index (BMI) Body weight Provider Name and Address Organization Details Last Updated DateTime 11/23/2023 163.83 cm 38.5 kg/m2 689933.06 g Charla Castro MA [facility] 11/23/2023 15:55:39 Date Recorded Body height Body mass index (BMI) Body weight Oxygen saturation Oxygen saturation in Arterial blood by Pulse oximetry Heart rate Body temperature Systolic blood pressure Diastolic blood pressure Provider Name and Address Organization Details Last Updated DateTime 4 163.83 cm 39.3 kg/m2 709408. 23 g 97 % 97 % 77 /min 97.3 [degF] 146 mm[Hg] 83 mm[Hg] Natasha Rodriguez MA [facility] 4 13:42:25 Date Recorded Body height Body mass index (BMI) Body weight Oxygen saturation Oxygen saturation in Arterial blood by Pulse oximetry Heart rate Body temperature Systolic blood pressure Diastolic blood pressure Provider Name and Address Organization Details Last Updated DateTime 4 163.83 cm 38.7 kg/m2 553773. 05 g 97 % 97 % 89 /min 97.6 [degF] 138 mm[Hg] 83 mm[Hg] Natasha Rodriguez MA [facility] 4 15:10:37 Date Recorded Body height Body mass index (BMI) Body weight Heart rate Oxygen saturation Oxygen saturation in Arterial blood by Pulse oximetry Body temperature Systolic blood pressure Diastolic blood pressure Provider Name and Address Organization Details Last Updated DateTime 5 163.83 cm 37 kg/m2 78496.7 3 g 80 /min 99 % 99 % 97.2 [degF] 153 mm[Hg] 92 mm[Hg] Malu Meléndez [facility] 5 14:32:28 Date Recorded Systolic blood pressure Diastolic blood pressure Provider Name and Address Organization Details Last Updated DateTime 07/09/2024 110 mm[Hg] 80 mm[Hg] Any Fisher MD [address], [address], [facility] 07/09/2024 15:04:17 Social History Question Answer Notes LastModified by Organizat ion Details LastModified Time Tobacco Smoking Status Never Smoker ERNIE Pitt, [facility] 12/27/2016 09:00:00 Do You Have An Advance Directive? Yes HCP Information not available 07/07/2022 What Is Your Level Of Alcohol Consumption? None Information not available 07/07/2022 Is Blood Transfusion Acceptable In An Emergency? Yes Information not available 12/27/2016 What Is Your Level Of Caffeine Consumption? Moderate 1 Medium Iced Coffee Daily; Occasional 2nd Coffee Information not available 10/10/2023 How Much Tobacco Do You Chew? None Information not available 12/27/2016 Are You Currently Employed? Yes Information not available 12/27/2016 What Type Of Diet Are You Following? SPECIFIC Low Carb; [facility] Mar 2022 Information not available 10/10/2023 Which Illicit Or Recreational Drugs Have You Used? None Information not available 12/27/2016 Do You Or Have You Ever Used E-cigarettes Or Vape? 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 With Others (Gilberto) Information not available 07/07/2022 Do You Take Precautions To Prevent Distracted Driving? Yes Information not available 12/27/2016 How Often Do You Need To Have Someone Help You When You Read Instructions, Pamphlets, Or Other Written Material From Your Doctor Or Pharmacy? Never Information not available 12/27/2016 Have You Served In The ? No Information not available 12/27/2016 Have You Or Anyone In Your Household Had Any Of The Following Symptoms In The Last 14 Days: Sore Throat, Cough, Chills, Body Aches For Unknown Reasons, Shortness Of Breath For Unknown Reasons, Loss Of Smell, Loss Of Taste, Fever At Or Greater Than 100 Degrees Fahrenheit? No Information not available 05/27/2020 Are You Or Anyone In Your Household A Health Care Provider Or Emergency Responder? No Information not available 05/27/2020 To The Best Of Your Knowledge Have You Been In Close Proximity To Any Individual Who Tested Positive For COVID-19? No Information not available 05/27/2020 Have You Recently Traveled To A COVID-19 High Risk Area Or Gathering In The Last 10 Days? No Information not available 11/29/2020 What Was The Date Of Your Most Recent Tobacco Screening? 02/27/2024 [email or web address] Information not available 02/27/2024 How Many Children Do You Have? 1 Adopted Son (Contreras) Information not available 12/27/2016 Do You Use Protection During Sex? No Information not available 12/27/2016 Do You Use Your Seat Belt Or Car Seat Routinely? Yes Information not available 07/07/2022 Seat Belts Used Routinely Yes Information not available 07/07/2022 Are You Sexually Active? Yes Gilberto Information not available 10/10/2023 Smoke Alarm In Home Yes Information not available 07/07/2022 Do You Have Smoke And Carbon Monoxide Detectors In Your Home? Yes Information not available 07/07/2022 At What Age Did You Start Smoking Tobacco? 0 Information not available 07/07/2022 Are You Passively Exposed To Smoke? No Information not available 12/27/2016 Do You Or Have You Ever Used Smokeless Tobacco? Never Used Smokeless Tobacco Information not available 11/29/2020 How Much Tobacco Do You Smoke? No Information not available 12/27/2016 Do You Use Any Illicit Or Recreational Drugs? No Information not available 07/07/2022 Do You Use Sunscreen Routinely? No Information not available 07/07/2022 How Many Years Have You Smoked Tobacco? 0 Information not available 07/07/2022 Do You Or Have You Ever Used Any Other Forms Of Tobacco Or Nicotine? No Information not available 07/07/2022 Sex: Unknown Functional Status Question Answer Note LastModified by Organizat ion Details LastModified Time Are you able to walk? YESWOREST Information not available 07/07/2022 Are you able to care for yourself? 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 Family History Relationship Description Onset Age of this Age Resolved Age Notes LastModified by Organization Details LastModified Time Father Hypertensive disorder 57 78 [email or web address] s Not available 12/27/2016 08:46:40 Mother Heart disease 68 81 angiop lasty phelmuth Not available 12/27/2016 09:43:44 Mother Dementia 78 81 [email or web address] s Not available 12/27/2016 08:46:40 Mother Type 2 diabetes mellitus [email or web address] Not available 07/07 14:27:20 Mother Hypertensive disorder phelmuth Not available 2018 09:27:11 Maternal Grandmother Malignant neoplasm of female breast [email or web address] Not available 07/07 14:27:20 Sister Hypertensive disorder phelmuth Not available 2016 09:44:07 Sister Malignant neoplasm of female breast 53 [email or web address] Not available 07/07 14:27:20 Sister Multiple sclerosis 71 [email or web address] s Not available 10/10/2023 14:53:49 Medical History Condition Response Other N Gout N Kidney Stones N Blood Diseases N Hyperthyroidism N Breast Cancer N Depression N COPD N Lung Disease N Hypothyroidism N Defects or Inherited Disease N Anesthesia Complications N Headaches/Migraines N Varicose Veins N Anxiety Disorder N Obesity N Vision or Eye Problems N Arthritis N Head Injury/Concussion N Polyps N Infertility N Congenital Anomalies N Acid Reflux (GERD) N Cancer N Stroke N ADHD N Endometriosis N High Cholesterol N Liver Disease N Fibromyalgia N Kidney Disease N Heart Problems N Ear or Hearing Problems N Hospitalizations N Thyroid Problems N GI Problems N Acne N Eating Disorder N Skin Problems N Anemia N Constipation N Bladder Problems N Mental Illness N Ovarian Cancer N Diabetes N Blood Transfusions N Seizures/Epilepsy N Tuberculosis N AIDS/HIV N Congestive Heart Failure (CHF) N Eczema N Diverticulitis N Abuse/Domestic Violence N Asthma N Allergies N Reflux/GERD N Hepatitis N Pulmonary Embolism N Hypertension Y Chicken Pox N Autism Spectrum Disorder (ASD) N Osteoporosis N Gynecological History Statement/Question Response Date of Last Pap Smear 11/22/2016 Date of Last Colonoscopy Most Recent Mammogram 10/02/2018 Obstetrics History GPAL:G 0 P 0 0 0 0 Immunizations Vaccine Type Date Status Note Provider Nam e and Address Organization Details Recorded Time [facility] 08[facility]56:50 [facility] B, [facility] 16:20:16 Hep B, adult 1 completed Beatrice aldana, [facility] 12/02/2018 16:20:20 Hep B, [facility] 2 [facility]2018 16:20:39 Influenza, split virus, quadrivalent, preservative 0 [facility] 05/27/2020 15:15:01 COVID-19, mRNA, LNP-S, PF, 30 mcg/0.3 mL dose 0 [facility] 03/15/2022 11:44:02 COVID-19, mRNA, LNP-S, PF, 30 mcg/0.3 mL dose 1 [facility] 03/15[facility]2022 11:44:02 Influenza, split virus, quadrivalent, PF 7 [facility]22 11:44:02 Influenza, split virus, quadrivalent, PF 1 completed ERNIE Gayle, [facility] 03/15/2022 11:44:02 Influenza, MDCK, quadrivalent, PF 8 [facility] 03/15/2022 11:44:02 COVID-19, mRNA, LNP-S, PF, 30 mcg/0.3 mL dose [facility] 11:44:02 Influenza, split virus, quadrivalent, PF 3 completed ERNIE Pitt, [facility] 10/10/2023 14:43:52 Influenza, split virus, quadrivalent, PF 2 completed ERNIE Pitt, [facility] 10/10/2023 14:43:52 Influenza, split virus, quadrivalent, PF 0 completed ERNIE Lopez, [facility] 11/14/2023 11:10:43 Influenza, split virus, trivalent, PF 4 [facility]24 13:42:45 Past Encounters Encounter ID Performer Location Encounter Start Date Encounter Closed Date Diagnosis/Indication Diagnosis SNOMED-CT Code Diagnosis ICD10 Code Diagnosis Note [id number] Alexandre Acosta MD Main Office [address] [address] 12/27/2016 08:42:23 12/27/2016 10:33:09 Adult health examination 840931465 Z00.00 Screening for malignant neoplasm of colon 060134160 Z12.11 Body mass index 30+ - obesity 958628276 E66.9 Z68.35 Seizure disorder 5208174 02 G40.909 Has been on snice surgery for Left parietal/o ccipital meningioma . Menopause present 291872 006 Z78.0 Essential hypertension 65339320 I10 Vitamin D deficiency 347 39526 E55.9 Gastroesop hageal reflux disease 029109077 K21.9 [id number] Alexandre Acosta MD Main Office [address] [facility] [address] [place] [address] 09/10/2017 09:44:57 09/10/2017 10:43:28 Screening for malignant neoplasm of colon 400309762 Z12.11 Screening for malignant neoplasm of breast 532821278 Z12.31 Hepatitis C screening 41 3636074 Z11.59 Essential hypertension 66028969 I10 Gastroesop hageal reflux disease 381713193 K21.9 Prediabetes 992069630 R7 3.03 Seizure disorder 4193504 02 G40.909 Has been on meds surgery for Left parietal/o ccipital meningioma . [id number] Alexandre Acosta MD Main Office [address] [facility] [address] [place] [address] 11/22/2018 08:43:40 11/22/2018 10:15:49 Essential hypertension 55481439 I10 Screening for malignant neoplasm of colon 712908760 Z12.11 Hepatitis C screening 41 0336391 Z11.59 Adult heal th examination 127005842 Z00.00 Menopause present 373995 006 Z78.0 Screening for malignant neoplasm of cervix 963383591 Z12.4 Seizure disorder 7024269 02 G40.909 Has been on meds surgery for Left parietal/o ccipital meningioma . Hyperlipidemia 80733445 E78.5 Fatigue 37651082 R53.83 Body mass index 30+ - obesity 251520068 E66.01 Z68.35 [id number] Desiree Todd MA Main Office [address] [facility] [address] [place] [address] 02/25/2019 10:05:29 02/25/2019 11:31:04 Parotitis 28991443 K11.20 ? parotitis vs. insect bites vs skin infection causing R. facial tenderness and swelling. New lesions seen. Continue doxycyclin e and have pt. see ENT LIA for further evaluation , no later than tomorrow. Warm compress and NSAIDs discussed. [id number] Evaristo Dueñas PA-C Main Office [address] [address] [place] [address] 05/27/2020 14:33:26 05/27/2020 15:57:46 Essential hypertension 05897784 I10 bp elevated - cont lis/hctz as dir but rec add 2.5mg of aml at hs Prediabetes 738211117 R7 3.03 [id number] Any Fisher MD Main Office [address] [facility] [address] [place] [address] 11/03/2020 13:34:05 11/03/2020 14:24:58 Low back pain 098531006 M54.5 Patient has been seen at [facility] has had xrays, and tried PT, will get MRI to further evalute.Wilson s tried motrin which take edge off. She has hx of GERD will do trial of meloxicam which seems to be better tolerated in individual with GERD, side affects discussed, advised to take with meal.Patie nt is aware weight loss would help. Essential hypertension 10205086 I10 Had elevated reading notes that taking CCB at night makes her dizzy. Thus did not take todayShe is going to try day time, if continues to be dizzy she will let us know.Signs and symptoms of hypertensi ve emergency discussed and when to go to hospital. [id number] Alexandre Acosta MD Main Office [address] [facility] [address] [facility] [place] [address] 11/29/2020 14:33:04 11/29/2020 16:15:09 Adult health examination 209767064 Z00.00 Essential hypertension 24737833 I10 Screening for malignant neoplasm of colon 993245015 Z12.11 Screening for malignant neoplasm of cervix 821388424 Z12.4 Body mass index 30+ - obesity 558840556 E66.01 Z68.35 HTN Prediabetes 895114156 R7 3.03 Seizure disorder 4227917 02 G40.909 Has been on meds surgery for Left parietal/o ccipital meningioma . 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 EKG normal. Patient advised to avoid aspirin and NSAIDS for 7 days prior. She should take her BP meds unless told to stop by the surgeon. Take tegretol as prescribed . May proceed to scheduled surgery as planned. Doty 0.1% Cerebral meningioma 1891 53334 D32.0 Pt had this removed in 2002, has been on tegretol to prevent seizures, has not had any seizures post surgery, will stay on for now, discuss with Dr Matthew escalante. Essential hypertension 24825573 I10 BP up initially, down on recheck [id number] Faith Lopes Main Office [address] [facility] [address] [place] [address] 08/16/2021 14:05:54 08/16/2021 15:28:19 Essential hypertension 59272283 I10 Had elevated reading but within JNC 8 , she will work on lifestyle changes if still elevated next time will consider adjusting medication , is currently asymptomat ic.Low sodium diet discussed Counseled on medication adherence Counseled on diet/exerc ise Advised to keep BP daily BP log and technique counseled. Red flags of HTN emergency discussed and when to go to ED. Prediabetes 825221286 R7 3.03 Hyperkalemia 71273109 E8 7.5 Fatigue 57572633 R53.83 Cerebral meningioma 1891 47851 D32.0 Had MRI prior to surgery in Feb,.No longer needs MRI. Body mass index 30+ - obesity 963875423 E66.01 - Diet and exercise discussed- Patient made aware of risks of obesity- Encouraged to loose weight.- Avoid starchy and fatty food- Encouraged use of green vegetables and fruits-diandra ns to start nutrisyste m. Seizure disorder 0579668 02 G40.909 Seizure free since removed. [id number] Any Fisher MD Main Office [address] [facility] [address] [place] [address] 07/07/2022 14:26:08 07/07/2022 16:01:42 Adult health examination 077885014 Z00.00 Patient was counseled on healthy diet, exercise and nutrition due to Body mass index is 36.7 kg/m??. Last Colonoscop y:Date:Res ult:Plan: wants to do cologuard Last Mammogram: Date: 10/02/18Res ult: Birad-1Pla n: ordered. Last Pap smearDate: 11/22/16Resu lt: Neg for GUSTAVO, TZ present, HPV negPlan: due, referral placed Bone density scanDate:R esult:Plan : not due Vaccines:T dAP: 11/07/16Zos ter rec: script providedPC V20: Not dueInfluen za: notes had for this season.Cov id: 05/06/2020 , 05/27/20, 04/20/21, bivalent advised. Routine labs today Immunizati on status reviewed. Will screen based on risk factors. Regular dental and ophtho care advised as well as seat belt and sunscreen use. Distracted driving discussed. Medication reconciled . Leukocytosis 217421231 D 72.829 Fatigue 77203491 R53.83 Z00.00 Hyperlipidemia 56620301 E78.5 Z00.00 Essential hypertension 61640035 I10 BP has been elevated will increase ccb to 5mg otherwise asymptomat ic. Follow up bp 1 week.Low sodium diet discussedC ounseled on medication adherenceC ounseled on diet/exerc iseAdvised to keep BP daily BP log and technique counseled. Red flags of HTN emergency discussed and when to go to ED. Cerebral meningioma 1891 44445 D32.0 Had MRI prior to surgery in Feb,.No longer needs MRI. Body mass index 30+ - obesity 895333638 E66.01 - Diet and exercise discussed- Patient made aware of risks of obesity- Encouraged to loose weight.- Avoid starchy and fatty food- Encouraged use of green vegetables and fruits-diandra ns to start nutrisyste m. Seizure disorder 3338386 02 G40.909 Seizure free since 2002 Prediabetes 164188231 R7 3.03 Screening for malignant neoplasm of colon 380730669 Z12.11 Z12.12 Hyponatremia 84029619 E8 7.1 Likely to tegretol, will check labs first. Screening for malignant neoplasm of breast 374494985 Z12.39 Screening for malignant neoplasm of cervix 307148116 Z12.4 Spinal mildred nosis of lumbar region 16201771 M48.062 Saw neuro surgery had MRI.Startbruna toribio exercise and diet program. Has been taking excess NSAIDAdvis ed to stop due Varicella vaccination 68 426768 Z23 [id number] Harshal Staton MD Main Office [address] [facility] [address] [place] [address] 05/05/2023 09:26:47 05/07/2023 08:42:59 COVID-19 074694820 U07.1 She will treat her symptoms. No paxlovid since it is contraindi cated with the tegretol which she should not be stopping. Seizure disorder 4210757 02 G40.909 Continue with tegretol. Interferes with paxlovid which we will not use for her COVID since it is not advisable to be stopping her seizure med. [id number] Faiht Lopes Main Office [address] [facility] [address] [facility] [place] [address] 10/10/2023 14:08:16 10/10/2023 15:45:15 Adult health examination 687497209 Z00.00 Patient was counseled on healthy diet, exercise and nutrition due to Body mass index is 39.7kg/m?? . Last Colonoscop y:Date:Res ult:Plan: wants to do cologuard reminded the importance of having this done. Last Mammogram: Date: 10/02/18Res ult: Birad-1Pla n: ordered., reminded importance of compliance Last Pap smearDate: 11/22/16Resu lt: Neg for GUSTAVO, TZ present, HPV negPlan: due, referral placed Bone density scanDate:R esult:Plan : not due Vaccines:T dAP: 11/07/16Zos ter rec: script providedPC V20: Not dueInfluen za: yearly flu encouraged .Covid: encouraged updated vaccine. Routine labs today Immunizati on status reviewed. Will screen based on risk factors. Regular dental and ophtho care advised as well as seat belt and sunscreen use. Distracted driving discussed. Medication reconciled . Fatigue 29794512 R53.83 Z00.00 Hyperlipidemia 82206684 E78.5 Z00.00 Essential hypertension 20257233 I10 BP has been elevated will increase ccb to 10 mg otherwise asymptomat ic. Follow up bp 1 mo. Cerebral meningioma 1891 00221 D32.0 Had MRI prior to surgery in Feb, .No longer needs MRI. Seizure disorder 2366252 02 G40.909 Seizure free since 2002 Body mass index 30+ - obesity 710489106 Z68.39 Prediabetes 708921275 R7 3.03 Screening for malignant neoplasm of colon 012342320 Z12.11 Z12.12 Screening for malignant neoplasm of breast 141058206 Z12.39 Screening for malignant neoplasm of cervix 108029685 Z12.4 Varicella vaccination 68 794846 Z23 Obesity 925170873 E66.9 - Diet and exercise discussed- Patient made aware of risks of obesity- Encouraged to loose weight.- Avoid starchy and fatty food- Encouraged use of green vegetables and fruits-diandra ns to start nutrisyste m. Spinal mildred nosis of lumbar region 40237191 M48.062 Saw neuro surgery has MRI ordered. Neuropathy 826150016 G62 .9 Likley 2/2 to fall, will get some basic labs.If sx cont despite wnl MRI/labs can consider EMG additonal labs for completene ss to r/o HIV and syphilis, kappa/lamd a light chain. Follow up 1 mo. 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 5762173560 105 G99.2 Restless legs 74158405 G 25.81 Finding of protein in serum or plasma 697239205 R77.9 Leukocytosis 465879440 D 72.829 [id number] Any Fisher MD Main Office [address] [address] [place] [address] 11/23/2023 15:53:08 11/23/2023 16:16:53 Body mass index 30+ - obesity 788413248 E66.9 Z68.35 Obesity 833537880 E66.9 [id number] Faith Lopes Main Office [address] [address] [place] [address] 02/27/2024 13:32:17 02/27/2024 14:25:22 Body mass index 30+ - obesity 607897185 Z68.35 Morbid obesity 429397381 E66.01 Essential hypertension 11110226 I10 BP has been elevated will increase ccb to 10 mg otherwise asymptomat ic. Follow up bp 1 mo. Monoclonal gammopathy of uncertain significance 617078888 D47.2 Cont. heme/onc follow up. 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 8256174878 105 G99.2 Morbid obesity 845566527 E66.01 Body mass index 40+ - severely obese 137219919 E66.01 Z68.41 Pain in ri ght hip joint 9288871040 58644 M25.551 Tendinitis of right gluteal tendon 0668267356 17579 M76.01 [id number] Any Fisher MD Main Office [address] [place] [address] 07/09/2024 14:24:22 07/09/2024 15:07:12 Morbid obesity 429186368 E66.01 Body mass index 40+ - severely obese 457029587 E66.01 Z68.41 Health Concerns Section Related Observation LastModified by Organization Detai ls LastModified Time None Recorded Concern Status LastModified by Organization Details LastModified Time None Recorded Advance Directives Directive Y: HCP Payers Encounter Date Sequence Insurance Name Policy Number Policy Arriaga Covered Member ID Arriaga Member ID Guarantor Name 11/14/2023 1 [facility] [employer] (POS) [id number] Gilberto Fett [id number] Margarita Goldstein Fett 11/23/2023 1 [facility] [employer] (POS) [id number] Gilberto Fett [id number] Margarita Goldstein Fett 02/27/2024 1 [facility] (POS) [id number] Gilberto Fett [id number] Margarita A Fett 04/09/2024 1 [facility] (POS) [id number] Gilberto Fett [id number] Margarita A Fett 07/09/2024 1 [facility] (POS) [id number] Gilberto Fett [id number] Margarita A Fett Notes Date Note Type Note Provider Name and Address Organization Details Recorded Time 11/14/2023 text/html The patient pres ents for a follow-up with her , reporting neuropathic-like symptoms. In late December, she experienced a fall while rushing and slipped off her sandal, causing her to hyperextend her neck and injure her lower back. She has a history of lower back surgery and has since consulted with her neurosurgeon, who performed MRIs of her cervical and lumbar spine. The cervical MRI showed signal changes and cord stenosis, leading her to consider cervical spine fusion. She notes that numbness in her fingertips began after the fall. The lumbar MRI revealed progressive changes, including epidural lipomatosis, stenosis at multiple levels, and a small synovial cyst. Surgery for her lumbar spine is also under consideration. She reports bilateral neuropathic symptoms in her lower extremities, predating her fall, which was first mentioned to me during this visit. A workup for neuropathy revealed an M spike in her multiple myeloma panel, prompting additional labs, which are pending. She also experiences dull aches in her right buttock down to her knee, which improve with certain positions and worsen with specific operations trainer adjustments. She occasionally has restless legs in her lower extremities. Her neuropathic symptoms primarily involve loss of sensation and numbness rather than tingling, affecting her bilateral hands and feet. Ayn Fisher MD [address], [address], [facility] 11/14/2023 19:14:05 11/23/2023 text/html ObesityReported bypatient.Diagnosis Summary:age at start of weight gain 17; diagnosis: obesity; additional diagnosis: elevated cholesterol/lipids; HTN, Prediabetes Context:no inhaled steroids;oral steroids(for back, last used 3-4mo ago.) Associated Symptoms:no depression; no chronic illness; no Prader-Willi Syndrome; no hypothyroidism Co-morbidities:no new co-morbidities since last visit Lifestyle changes:no changes in living situation; motivated to continue lifestyle changes;constitutiona l symptoms related to diagnosis; 2x/week with operations trainer. Focusing on medternian diet. Nutrition:eats low carbohydrate diet; hx of weight watchers. Physical Activity:reported frequency of moderate level of physical activity per week: 2-4 days; weekly screen time (electronics) : 45 hours Medication Education:understands potential side effects; understands administration; understands role of diet as primary therapy Visit for obesity management. Any Fisher MD [address], [address], [facility] 11/23/2023 18:03:28 02/27/2024 text/html ObesityReported bypatient.Diagnosis Summary:age at start of weight gain 17; diagnosis: obesity; additional diagnosis: elevated cholesterol/lipids; HTN, Prediabetes Context:no inhaled steroids;oral steroids(for back, last used 3-4mo ago.) Associated Symptoms:no depression; no chronic illness; no Prader-Willi Syndrome; no hypothyroidism Co-morbidities:no new co-morbidities since last visit Lifestyle changes:no changes in living situation; motivated to continue lifestyle changes;constitutiona l symptoms related to diagnosis; 2x/week with operations trainer. Focusing on medternian diet. Nutrition:counting and restricting calories; hx of weight watchers. Physical Activity:reported frequency of moderate level of physical activity per week: 2-4 days; weekly screen time (electronics) : 45 hours; Limited due to lower extremity weakness from lower back creating weakness. Medication Education:understands potential side effects; understands administration; understands role of diet as primary therapyNotes:Margarita presents with her today for a follow-up regarding her weight loss. Unfortunately, she has gained weight despite her efforts to lose it. She remains limited in her mobility due to back issues that radiate down her legs. She mentioned that she recently saw a admission liaison, who agrees with the likely diagnosis of MGUS (Monoclonal Gammopathy of Undetermined Significance) and plans to follow up on this condition. She is also actively being followed by a neurosurgeon for her back problems, which seem to have worsened since her surgery. She continues to experience radicular symptoms. I suggested gabapentin for her neuropathic pain, but she noted that her neurosurgeon advised against it and also recommended avoiding steroid injections. I explained that I would respect the neurosurgeon's decision and that she should continue her follow-up with him regarding her radicular symptoms. Down the line, we can consider an EMG if all spinal pathologies have been ruled out. Both Margarita and her are understandably frustrated with her limitations, as she cannot walk for prolonged periods, and her weight is contributing to her back issues. Faith aldana [facility] 03/10/2024 13:53:27 04/09/2024 text/html Hypertension F/UReported bypatient.Associated Symptoms:no dizziness; no lightheadedness; no chest pain; no shortness of breath; no palpitations; no edema; no calf pain with exertion Lifestyle:limiting/av oiding salt;not exercising regularly Medications:taking medications as directed; no side effects from medication The patient is here with her . While this visit was primarily intended to focus on her blood pressure, several other concerns were addressed as time allowed. Her blood pressure is well-controlled with the recent increase of amlodipine to 10 mg, so we will continue with this regimen as she is tolerating it well. During the visit, she expressed concerns that her lower extremity symptoms might be originating from her right hip. She reports that her hip catches and clicks, and she has been following a operations trainer's recommendations to address this. She has also lost 3 pounds since initiating Zepbound and is tolerating it well, though she experiences occasional constipation. Bcdr-nnh-insdmpi conservative measures have been effective in managing this side effect. Additionally, she has followed up with her neurosurgeon, who has discussed the possibility of cervical surgery to address her cervical radiculopathy symptoms. She continues to experience weakness in her lower extremities, a longstanding issue that her neurosurgeon is monitoring. Any Fisher MD [address], [address], [facility] 04/09/2024 18:53:00 07/09/2024 text/html ObesityReported bypatient.Diagnosis Summary:age at start of weight gain 17; diagnosis: obesity; additional diagnosis: elevated cholesterol/lipids; HTN, Prediabetes Context:no inhaled steroids;oral steroids(for back, last used 3-4mo ago.) Associated Symptoms:no depression; no chronic illness; no Prader-Willi Syndrome; no hypothyroidism Co-morbidities:no new co-morbidities since last visit Lifestyle changes:no changes in living situation; motivated to continue lifestyle changes;constitutiona l symptoms related to diagnosis; 2x/week with operations trainer. Focusing on medternian diet. Nutrition:counting and restricting calories; hx of weight watchers. Physical Activity:reported frequency of moderate level of physical activity per week: 2-4 days; weekly screen time (electronics) : 45 hours; Limited due to lower extremity weakness from lower back creating weakness. Medication Education:understands potential side effects; understands administration; understands role of diet as primary therapyNotes:Margarita presents with her today for a follow-up regarding her weight loss. Unfortunately, she has gained weight despite her efforts to lose it. She remains limited in her mobility due to back issues that radiate down her legs. The patient presents today with her for a follow-up on weight loss. Since starting the medication, she has lost approximately 6% of her body weight, going from 232 lbs to 219 lbs. She reports tolerating the medication well without any side effects and denies lumps or bumps in her neck, visual changes, nausea, or constipation. She is having regular bowel movements and passing gas. She has been sequentially increasing her dose, but she missed her last scheduled dose as she ran out of her injection and did not reach out for a refill. I have sent in the next dose, but she is unsure if she will be able to obtain it this week. If her dose lapse exceeds two weeks, I advised her to restart at 2.5 mg to reduce the risk of bowel obstruction. She has resumed exercising with her operations trainer and notes improvement in her hip pain, though she never pursued physical therapy. Additionally, she plans to follow up with her neurosurgeon regarding tingling down to her fingertips, as she is considering potential neurosurgical intervention for her neck. An EMG study has been ordered and is scheduled for next month. Her blood pressure is well controlled today, and she reports making significant dietary changes, including reducing portion sizes. Her NAOMI-7 and PHQ-9 screenings are negative. Any Fisher MD [address] [address], [place], [address], [facility] 07/09/2024 17:05:01 OBGyn Episode No OBEpisode recorded.
--- OUTSIDE RECORDS SUMMARY | 2024-07-31 18:38 | XMS_ITS | Continuity of Care Document ---
Author Organization [facility] Medical [facility], Main Office Address [address] [place] [address] Care Team Providers Care Supervisor Machining Name Role Phone [facility] Ophthalmologis t ARIN HIRSCH Primary Care Provider GREGORIO CHING Neurosurgeon MARTY GARCIA Neurologist Assessment Encounter Date Assessment Date Assessment LastModified by Organization Details LastModified Time 07/09/2024 07/09/2024 Weight Management & Zepbound Use: -Continue Zepbound, but if the dose lapse exceeds two weeks, restart at 2.5 mg to reduce the risk of bowel obstruction and GI side effects. -Encourage continued exercise with her computer technology trainer and dietary modifications. Neurologic Symptoms: -Follow up with neurosurgery regarding tingling in her fingertips for potential intervention. -EMG scheduled for next month to assess for neuropathy or cervical involvement. Hip Pain: -Symptoms have improved, and physical therapy was never pursued. Monitor and reassess if pain worsens. Blood Pressure & General Health: -BP is well controlled today? c ontinue monitoring. -Continue dietary improvements and portion control. Follow-Up: Reassess in a PE to review medication adherence, weight loss progress, and EMG results. Monitor for any worsening neurologic symptoms or medication-rela wallace side effects. [email or web address] Not available 07/09/2024 17:04:47 Plan of Treatment Reminders Order Date Submit Date Provider Last Modified By Organization Details Last Modified Time Details Appointments PE EST 025 03:30PM Arin Hirsch MD Not available Not available Not available Lab None record ed. Referral None record ed. Procedures None record ed. Surgeries None record ed. Imaging None record ed. Medication Orders None record ed. Patient TargetsNo targets recorded. Patient Instructions Encounter Date Encounter Id Patient Instructions Last Modified By Organization Details Last Modified Time 07/09/2024 [id number] body mass index: care instructions [email or web address] Not available 07/09/2024 14:54:34 learning about healthy weight [email or web address] Not available 07/09/2024 14:54:34 When You Want to Lose Weight: Care Instructions [email or web address] Not available 07/09/2024 14:54:34 Reason for Referral None Reported. Results Created Date Observation Date Name Description Value Unit Range Abnormal Flag Note LastModifiedBy Organization Detail LastModifiedTime 06/16/1906/16/2024 XR, hip + pelvi s, unila teral , 2 or 3 view XR Hip w/Pelv is 2-3 View Right Reason : pain in right hip COMPAR ANNA: PET/CT 12/24/19 24 FINDIN GS: There is no fractu re or disloc ation. Normal right hip joint. Symmet rical indole nt ossifi cation at the hamstr ing attach ment on the greate r tubero sity. IMPRES ARMANDO: Normal right hip. WSN: [id number] Orderi ng Physic lanie: Kathy Hirsch Dictat ed By: Mariam Bernal MD Dictat ed Date/T alondra: 12:03 p Review ed By: Mariam Bernal MD Signed By: Mariam Bernal MD Signed Date/T alondra: 12:03 pm Transc ribed By: JUNE Transc ribed Date/T alondra: 12:01 pm Patien t Class: Outpat ient [facility] (Outpt Imaging) [address], [place], [address], 06/16/2024 16:10:35 06/16/19 25 06/16/2024 XR, hip + pelvi s, unila teral , 2 or 3 view No observ ation record ed. [email or web address] Not Available 06/16 12:34:38 08/01/19 25 07/31/2024 elect romyo gram + nerve condu ction study No observ ation record ed. [facility] (Medical Records) [address] [place], [address], 07/31/2024 16:10:17 08/01/19 25 07/31/2024 elect romyo gram + nerve condu ction study No observ ation record ed. [facility] Cardiology [address] [place], [address], 07/31/2024 16:17:09 08/01/19 25 07/31/2024 elect romyo gram + nerve condu ction study No observ ation record ed. [facility] Cardiology [address] [place], [address], 07/31/2024 16:18:35 Result Notes None recorded. Problems Name Problem SNOMED Code Status Onset Date Resolution Date Notes Provider Name and Address Organization Details Recorded Time Essential hypertens ion 90153386 Active 2014 Alexandre Acosta MD [address], [place], [address], [facility] 7 09:43:16 Cerebral meningiom a 407693006 Active 2002 Alexandre Acosta MD [address], [place], [address], [facility] 9 09:31:22 Body mass index 30+ - obesity 691768008 Completed 201611/22/2018 Gertrude Marion MA null, [facility] 9 08:57:01 Gastroeso phageal reflux disease 548515069 Active 2016 Alexandre Acosta MD [address], [place], [address], [facility] 7 10:31:35 Vitamin D deficienc y 89910966 Completed 201608/16/2021 Arin Hirsch MD [address], [place], [address], [facility] 2 08:17:24 Seizure disorder 162915216 Active 2016 Alexandre Acosta MD [address], [place], [address], [facility] 7 10:31:39 Prediabet es 591741251 Active 2018 Alexandre Acosta MD [address], [place], [address], [facility] 9 21:39:43 Lesion of skin of face 568386158772 Completed 201810/10/2023 Arin Hirsch MD [address], [place], [address], [facility] 4 15:16:55 Spinal stenosis of lumbar region 36128267 Active 2020 Alexandre Acosta MD [address], [place], [address], [facility] 1 16:09:07 COVID-19 246207640 Completed 10/10/2023 ERNIE Rodríguez, [facility] 4 14:44:58 Neuropath y 992716670 Active ERNIE Lopez, [facility] 4 11:10:20 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 Procedures Surgical History Date Name Laterality Status Provider Name and Address Organization Details Recorded Time 02/19/20 21 laminectomy completed Donna parks MA [facility] 07/07/2022 14:55:59 02/19/20 21 primary decompression of lumbar spine completed Donna parks MA [facility] 07/07/2022 14:55:14 10/03/19 19 Most Recent Mammogram completed Beatrice Edwards [facility] 11/22/2018 10:38:37 10/03/19 19 Mammogram screening completed Beatrice Edwards [facility] 11/22/2018 10:38:27 11/23/19 17 Date of Last Pap Smear completed Donna parks MA [facility] 09/10/2017 09:54:35 06/06/19 03 Neurosurgery completed Donna parks MA [facility] 11/29/2020 15:00:00 Colonoscopy completed Donna parks MA [facility] 11/29/2020 15:00:19 Imaging Results None recorded. Procedure Notes None recorded. Medical Equipment None [...] ne ER 300 mg capsule,ext ended release [id number] TAKE 1 CAPSULE BY MOUTH EVERY MORNING [id number] active Not Available Not Available No t [...] Not Available Vitals Date Recorded Body height Body mass index (BMI) Body weight Heart rate Oxygen saturation Oxygen saturation in Arterial blood by Pulse oximetry Body temperature Systolic blood pressure Diastolic blood pressure Provider Name and Address Organization Details Last Updated DateTime 5 163.83 cm 37 kg/m2 54397.7 3 g 80 /min 99 % 99 % 97.2 [degF] 153 mm[Hg] 92 mm[Hg] Malu Huang [facility] 5 14:32:28 Date Recorded Systolic blood pressure Diastolic blood pressure Provider Name and Address Organization Details Last Updated DateTime 07/09/2024 110 mm[Hg] 80 mm[Hg] Arin Hirsch MD [address] [place], [address], [facility] 07/09/2024 15:04:17 Social History Question Answer Notes LastModified by Organizat ion Details LastModified Time Tobacco Smoking Status Never Smoker RENIE Pitt, [facility] 12/27/2016 09:00:00 Do You Have An Advance [...] not available 07/07/2022 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 Information not available 07/07/2022 Live Alone Or [...] Of Your Most Recent Tobacco Screening? 02/27/2024 [email or web address] Information not available 02/27/2024 How Many Children [...] What is your exercise level? Moderate [employer] computer technology trainer 2 x week Information not available [...] 12/27/2016 08:46:40 Mother Type 2 diabetes mellitus [email or web address] Not available 07/07 14:27:20 Mother Hypertensive disorder [email or web address] Not available 2018 09:27:11 Maternal Grandmother Malignant neoplasm of female breast [email or web address] Not available 07/07 14:27:20 Sister Hypertensive disorder [email or web address] Not available 2016 09:44:07 Sister Malignant neoplasm of female breast 53 [email or web address] Not available 07/07 14:27:20 Sister Multiple sclerosis 71 [email or web address] Not available 10/10/2023 14:53:49 Medical History Condition Response Other N Gout N Blood Diseases N Kidney Stones N Hyperthyroidism N Breast Cancer N Hypothyroidism N Lung Disease N Depression N COPD N Defects or Inherited Disease N Anesthesia Complications N Headaches/Migraines N Varicose Veins N Anxiety Disorder N Obesity N Vision or Eye Problems N Arthritis N Head Injury/Concussion N Infertility N Polyps N Congenital Anomalies N Acid Reflux (GERD) N Cancer N Stroke N ADHD N Endometriosis N High Cholesterol N Liver Disease N Fibromyalgia N Kidney Disease N Heart Problems N Ear or Hearing Problems N Hospitalizations N Thyroid Problems N GI Problems N Acne N Eating Disorder N Skin Problems N Anemia N Constipation N Bladder Problems N Mental Illness N Diabetes N Ovarian Cancer N Blood Transfusions N Seizures/Epilepsy N Tuberculosis N AIDS/HIV N Congestive Heart Failure (CHF) N Eczema N Abuse/Domestic Violence N Diverticulitis N Asthma N Allergies N Reflux/GERD N [...] Details Recorded Time [facility] 08:56:50 Hep B, adult 0 completed Beatrice Edwards [facility] 12/02/2018 16:20:16 Hep B, adult 1 completed Beatriceaugustus Edwards [facility] 12/02/2018 16:20:20 Hep B, adult 2 completed Beatrice Edwards [facility] 12/02/2018 16:20:39 Influenza, split virus, quadrivalent, preservative 0 [facility] 05/27[facility]2020 15:15:01 COVID-19, mRNA, LNP-S, PF, 30 mcg/0.3 mL dose 0 completed ERNIE Gayle [facility] 03/15/2022 11:44:02 COVID-19, mRNA, LNP-S, PF, 30 mcg/0.3 mL dose 1 [facility]2022 11:44:02 Influenza, split virus, quadrivalent, PF 7 completed ERNIE Gayle [facility] 03/15/2022 11:44:02 Influenza, split virus, quadrivalent, PF 1 completed ERNIE Gayle, [facility] 03/15/2022 11:44:02 Influenza, MDCK, quadrivalent, PF 8 completed ERNIE Gayle, [facility] 03/15/2022 11:44:02 COVID-19, mRNA, LNP-S, PF, 30 mcg/0.3 mL dose 1 completed ERNIE Gayle [facility] 03/15/2022 11:44:02 Influenza, split virus, quadrivalent, PF 3 [facility] 10[facility]10[facility]2023 14:43:52 Influenza, split virus, quadrivalent, PF 2 [facility]23 14:43:52 Influenza, split virus, quadrivalent, PF 0 completed ERNIE Lopez, [facility] 11/14/2023 11:10:43 Influenza, split virus, trivalent, PF 4 [facility]24 13:42:45 Past Encounters Encounter ID Performer Location Encounter Start Date Encounter Closed Date Diagnosis/Indication Diagnosis SNOMED-CT Code Diagnosis ICD10 Code Diagnosis Note [id number] Arin Hirsch MD Main Office [address] [facility] [address] [place] [address] 07/09/2024 14:24:22 07/09/2024 15:07:12 Morbid obesity 954611895 E66.01 Body mass index 40+ - severely obese 359881044 E66.01 Z68.41 Health Concerns Section Related Observation LastModified by Organization Detai ls LastModified Time None Recorded Concern Status LastModified by Organization Details LastModified Time None Recorded Payers Encounter Date Sequence Insurance Name Policy Number Policy Arriaga Covered Member ID Arriaga Member ID Guarantor Name 07/09/2024 1 [facility] ([id number] [id number] Gilberto Vuong [id number] Margarita A Fett Notes Date Note Type Note Provider Name and Address Organization Details Recorded Time 07/09/2024 text/html ObesityReported bypatient.Diagnosis Summary:age at start of weight gain 17; diagnosis: obesity; additional diagnosis: elevated cholesterol/lipids; HTN, Prediabetes Context:no inhaled steroids;oral steroids(for back, last used 3-4mo ago.) Associated Symptoms:no depression; no chronic illness; no Prader-Willi Syndrome; no hypothyroidism Co-morbidities:no new co-morbidities since last visit Lifestyle changes:no changes in living situation; motivated to continue lifestyle changes;constitutiona l symptoms related to diagnosis; 2x/week with computer technology trainer. Focusing on medternian diet. Nutrition:counting and [...] obstruction. She has resumed exercising with her computer technology trainer and notes improvement in her hip [...] Her NAOMI-7 and PHQ-9 screenings are negative. Arin Hirsch MD [address] [address], [place], [address], [facility] 07/09/2024 17:05:01 OBGyn Episode No OBEpisode recorded.
== END 2024-07-31 14:52 | disposition home or self-care (01) ==
LOC: HO.NEURO 14:51
PROVIDERS: PCP Family Medicine; Visit Provider Family Medicine
DX: M48.062 Spinal stenosis, lumbar region with neurogenic claudication (principal)
CPT/HCPCS: 95886; 95913

== ENCOUNTER → 2024-07-31 14:58 | Outpatient (BNV) | payer MEDICARE, OTHER, SELFPAY | PROVIDERS: PCP Family Medicine; Visit Provider Physical Medicine & Rehabilitation | DX: G56.03 Carpal tunnel syndrome, bilateral upper limbs (principal); G62.89 Other specified polyneuropathies | CPT/HCPCS: 95886; 95913 ==